=== PATIENT | male | born 1940 | race Caucasian/White ===

== ENCOUNTER 2016-08-25 02:09 | Inpatient (IN) | payer MEDICARE, OTHER ==
[~2016-08-25] VITALS: Ht 182.9 cm; Wt 86.5 kg
[~2016-08-25 02:09] MED LIST: AMIO100T3 OR; CARV3.1240 PO; DOXA1TAB42 PO; GEM600T GT; RAMI10CA OR; SIMV-8 PO; WARF4TAB33 PO
[2016-08-25 02:37] LABS: Hematocrit 44.5 % (41.0-53.0); Hemoglobin 14.3 g/dL (13.5-17.5); Mean Corpuscular Hemoglobin 28.4 pg (28.0-32.0); Mean Corpuscular Hgb Conc. 32.2 g/dL (32.0-36.0); Mean Corpuscular Volume 88.2 fL (80.0-100.0); Mean Platelet Volume 10.6 fL (7.4-10.4); Platelet Count (auto) 163 10^3/uL (140-450); Red Cell Distribution Width 14.3 % (11.6-16.0); SUSPECT VIEW TRANSMISSION
[2016-08-25 02:46] LABS: Metamyelocytes % 0; Myelocytes % 0; Promyelocytes % 0; Reactive Lymphocytes 0
[2016-08-25] MEDS ORDERED: AMIO200T33 PO (02:55)
[2016-08-25] MEDS ORDERED: CARV6.25 PO (02:58)
[2016-08-25] MEDS ORDERED: FURO40TA PO (02:58)
[2016-08-25] MEDS ORDERED: GEMF600T3 PO (03:01)
[2016-08-25] MEDS ORDERED: WARF2.5T39 PO (03:01)
[2016-08-25] MEDS ORDERED: SIMV-8 PO (03:01)
[2016-08-25] MEDS ORDERED: RAMI2.5C33 PO (03:01)
[2016-08-25] MEDS ORDERED: WARF5TAB71 PO (03:01)
[2016-08-25 03:10] LABS: Anisocytosis Slight; Hypersegmented Neutrophils Present; Platelet Estimate Adequate
[2016-08-25 03:11] LABS: Ovalocytes FEW
[2016-08-25 03:13] LABS: Albumin 3.9 g/dL (3.4-5.0); Calcium 8.2 mg/dL (8.5-10.1); Potassium 4.6 mmol/L (3.5-5.1)
[2016-08-25 03:16] LABS: Bilirubin, Total 0.4 mg/dL (0.2-1.0); Total Protein 7.4 g/dL (6.4-8.2)
[2016-08-25 03:35] LABS: Temperature: 21.4 C (20.0-25.0)
[2016-08-25] MEDS ORDERED: cefTRIAXone 1GM/50ML D5W 50 ML IV ONE (04:30)
[2016-08-25] MEDS ORDERED: IPRATROPIUM BROM 0.5 MG/2.5ML INH SOL NEB ONE (04:45)
[2016-08-25] MEDS ORDERED: methylPREDNISolone SOD SUCC 125 MG/2 ML VL IV ONE (04:45)
[2016-08-25] MEDS ORDERED: ALBUTEROL SULF 2.5 MG/0.5ML(0.5%) NEB SOLN NEB ONE (04:45)
[2016-08-25 05:02] LABS: INR 2.89 (0.9-1.15); Prothrombin Time 29.8 sec (9.37-12.3)
[2016-08-25] MEDS ORDERED: ONDANSETRON HCL 4 MG/2 ML VIAL IV PRN (07:00)
[2016-08-25] MEDS ORDERED: ALBUTEROL SULF 2.5 MG/0.5ML(0.5%) NEB SOLN NEB PRN (07:00)
[2016-08-25] MEDS ORDERED: NITROGLYCERIN 0.4 MG SL TAB SL PRN (07:00)
[2016-08-25] MEDS ORDERED: ENOXAPARIN SOD 100 MG/1 ML SYRINGE SC ONE (07:00)
[2016-08-25] MEDS ORDERED: ACETAMINOPHEN 325 MG TAB PO PRN (07:00)
[2016-08-25] MEDS ORDERED: IPRATROPIUM BROM 0.5 MG/2.5ML INH SOL NEB PRN (07:00)
[2016-08-25] MEDS: FAMOTIDINE 20 MG TAB PO SCH (08:43)
[2016-08-25] MEDS: GEMFIBROZIL 600 MG TAB PO SCH (08:43)
[2016-08-25] MEDS: RAMIPRIL 2.5 MG CAP PO SCH (08:44)
[2016-08-25 09:56] VITALS: BP 118/82
[2016-08-25] MEDS ORDERED: AMIODARONE HCL 200 MG TAB PO SCH (10:00)
[2016-08-25] MEDS ORDERED: CARVEDILOL 3.125 MG TAB PO SCH (10:00)
[2016-08-25] MEDS ORDERED: FUROSEMIDE 40 MG TAB PO SCH (10:00)
[2016-08-25] MEDS ORDERED: GEMFIBROZIL 600 MG TAB PO SCH (10:00)
[2016-08-25] MEDS ORDERED: FAMOTIDINE 20 MG TAB PO SCH (10:00)
[2016-08-25 10:03] LABS: Urine Bilirubin Negative (Negative); Urine Blood Negative /uL (Negative); Urine Color Yellow (Yellow); Urine Glucose Normal (Normal); Urine Ketone Negative (Negative); Urine Nitrite Negative (Negative); Urine RBC <1 /hpf (0 - 3); Urine Squamous Epithelial Cell FEW /hpf (<5); Urine Urobilinogen Normal (Negative); Urine pH 5.5 (5.0-8.0)
[2016-08-25] MEDS: AZITHROMYCIN 500MG/D5W 250ML 250 ML IV SCH (10:30)
[2016-08-25] MEDS ORDERED: DEXTROSE (50%) 50ML SYRG IV PRN (11:30)
[2016-08-25] MEDS ORDERED: ACCU-CHEK COMFORT CURVE STRIP VI SCH (11:30)
[2016-08-25] MEDS: InsuLIN REG 1unit/0.01ml Soln (100units/ml) SC SCH ×3 (12:00→20:47)
[2016-08-25] MEDS: ACCU-CHEK COMFORT CURVE STRIP VI SCH ×3 (12:00→23:10)
[2016-08-25] MEDS ORDERED: FUROSEMIDE 100 MG/10ML VIAL IV ONE ×2 (13:30)
[2016-08-25 17:00] VITALS: BP 110/72
[2016-08-25] MEDS ORDERED: WARFARIN SODIUM 2 MG TAB PO ONE (17:00)
[2016-08-25 20:00] VITALS: BP 101/62
[2016-08-25] MEDS ORDERED: PATIENTS OWN MEDICATION (simvastatin 20 MG) PO SCH ×2 (22:00)
[2016-08-25] MEDS: methylPREDNISolone SOD SUCC 40 MG/ML VL IV SCH (23:23)
[2016-08-25] MEDS: AMIODARONE HCL 200 MG TAB PO SCH (23:24)
[2016-08-25] MEDS: METOPROLOL TARTRATE 25 MG TAB PO SCH (23:25)
[2016-08-25] MEDS: PRAVASTATIN SODIUM 20 MG TAB PO SCH (23:26)
[2016-08-25] MEDS: MEXILETINE HYDROCHLORIDE 150 MG CAP PO SCH (23:48)
[2016-08-26] MEDS: InsuLIN REG 1unit/0.01ml Soln (100units/ml) SC SCH ×6 (02:43→20:29)
[2016-08-26] MEDS: ACCU-CHEK COMFORT CURVE STRIP VI SCH ×6 (02:58→20:30)
[2016-08-26 03:26] VITALS: BP 101/62
[2016-08-26 05:13] VITALS: BP 104/60
[2016-08-26] MEDS: cefTRIAXone 1GM/50ML D5W 50 ML IV SCH (06:00)
[2016-08-26 06:04] LABS: Hematocrit 37.7 % (41.0-53.0); Hemoglobin 12.4 g/dL (13.5-17.5); Mean Corpuscular Volume 87.8 fL (80.0-100.0); Mean Platelet Volume 11.1 fL (7.4-10.4); Platelet Count (auto) 140 10^3/uL (140-450); Red Cell Distribution Width 14.1 % (11.6-16.0); SUSPECT VIEW TRANSMISSION
[2016-08-26 06:15] LABS: Metamyelocytes % 0; Myelocytes % 0; Partial Thromboplastin Time 39.2 sec (22.64-33.71); Promyelocytes % 0; Reactive Lymphocytes 0
[2016-08-26 06:24] LABS: INR 3.24 (0.9-1.15); Prothrombin Time 33.4 sec (9.37-12.3)
[2016-08-26 06:34] LABS: Albumin 3.2 g/dL (3.4-5.0); BUN/Creatinine Ratio 24.1; Bilirubin, Total 0.4 mg/dL (0.2-1.0); Calcium 8.4 mg/dL (8.5-10.1); Magnesium 2.5 mg/dL (1.6-2.6); Potassium 4.3 mmol/L (3.5-5.1); Total Protein 6.4 g/dL (6.4-8.2)
[2016-08-26 07:04] LABS: Platelet Estimate Adequate
[2016-08-26 07:06] LABS: Ovalocytes MODERATE; Tear Drop Cells FEW
[2016-08-26 09:00] VITALS: BP 104/68
[2016-08-26] MEDS: FUROSEMIDE 40 MG/4 ML VIAL IV SCH (09:45)
[2016-08-26] MEDS: methylPREDNISolone SOD SUCC 40 MG/ML VL IV SCH ×2 (09:46→21:46)
[2016-08-26] MEDS: RAMIPRIL 2.5 MG CAP PO SCH (09:46)
[2016-08-26] MEDS: METOPROLOL TARTRATE 25 MG TAB PO SCH ×2 (09:47→22:00)
[2016-08-26] MEDS: GEMFIBROZIL 600 MG TAB PO SCH (09:47)
[2016-08-26] MEDS: FAMOTIDINE 20 MG TAB PO SCH (09:47)
[2016-08-26] MEDS: AMIODARONE HCL 200 MG TAB PO SCH ×2 (09:47→21:47)
[2016-08-26] MEDS ORDERED: ENOXAPARIN SOD 40 MG/0.4 ML SYRINGE SC SCH (10:00)
[2016-08-26] MEDS: AZITHROMYCIN 500MG/D5W 250ML 250 ML IV SCH (10:00)
[2016-08-26 13:00] VITALS: BP 108/60
[2016-08-26] MEDS: MEXILETINE HYDROCHLORIDE 150 MG CAP PO SCH ×2 (13:01→22:00)
[2016-08-26 17:00] VITALS: BP 107/65
[2016-08-26] MEDS: PRAVASTATIN SODIUM 20 MG TAB PO SCH (21:46)
[2016-08-26 22:00] VITALS: BP 91/72
[2016-08-27] MEDS: InsuLIN REG 1unit/0.01ml Soln (100units/ml) SC SCH ×4 (00:43→12:08)
[2016-08-27] MEDS: ACCU-CHEK COMFORT CURVE STRIP VI SCH ×4 (00:43→12:08)
[2016-08-27] MEDS: cefTRIAXone 1GM/50ML D5W 50 ML IV SCH (04:55)
[2016-08-27 05:00] VITALS: BP 99/58
[2016-08-27 06:52] LABS: Hematocrit 39.3 % (41.0-53.0); Hemoglobin 12.9 g/dL (13.5-17.5); Mean Corpuscular Hgb Conc. 32.8 g/dL (32.0-36.0); Mean Corpuscular Volume 88.6 fL (80.0-100.0); Platelet Count (auto) 140 10^3/uL (140-450); Red Cell Distribution Width 14.2 % (11.6-16.0); SUSPECT VIEW TRANSMISSION; White Blood Cell 19.7 10^3/uL (4.4-10.8)
[2016-08-27 07:01] LABS: Partial Thromboplastin Time 36.4 sec (22.64-33.71)
[2016-08-27 07:10] LABS: BUN/Creatinine Ratio 29.6; Calcium 8.4 mg/dL (8.5-10.1); Magnesium 2.7 mg/dL (1.6-2.6); Potassium 4.3 mmol/L (3.5-5.1)
[2016-08-27 07:27] LABS: Metamyelocytes % 0; Myelocytes % 0; Promyelocytes % 0; Reactive Lymphocytes 0
[2016-08-27 08:16] LABS: INR 3.26 (0.9-1.15); Prothrombin Time 33.6 sec (9.37-12.3)
[2016-08-27 09:00] VITALS: BP 102/68
[2016-08-27] MEDS: METOPROLOL TARTRATE 25 MG TAB PO SCH (10:00)
[2016-08-27] MEDS: FUROSEMIDE 40 MG/4 ML VIAL IV SCH (10:00)
[2016-08-27] MEDS: AZITHROMYCIN 500MG/D5W 250ML 250 ML IV SCH (10:15)
[2016-08-27] MEDS: FAMOTIDINE 20 MG TAB PO SCH (10:18)
[2016-08-27] MEDS: methylPREDNISolone SOD SUCC 40 MG/ML VL IV SCH (10:18)
[2016-08-27] MEDS: RAMIPRIL 2.5 MG CAP PO SCH (10:24)
[2016-08-27] MEDS: AMIODARONE HCL 200 MG TAB PO SCH (10:25)
[2016-08-27] MEDS: GEMFIBROZIL 600 MG TAB PO SCH (10:25)
[2016-08-27 11:28] LABS: Giant Platelets Few; Ovalocytes MODERATE; Platelet Estimate Adequate
[2016-08-27] MEDS: MEXILETINE HYDROCHLORIDE 150 MG CAP PO SCH (12:22)
[2016-08-27 13:00] VITALS: BP 111/76
[2016-08-27 14:52] VITALS: BP 115/78
[2016-08-27 16:34] VITALS: BP 99/62
== END 2016-08-27 15:33 | disposition home or self-care (01) | DRG 291 ==
LOC: EDBD 02:09 → ER 02:11 → TELE 02:12 → TELE-E-ADS 10:03 → TELE-WESTW 16:43
PROVIDERS: ADMIT Internal Medicine; ATTEND Internal Medicine
DX: I13.0 Hypertensive heart and chronic kidney disease with heart failure and stage 1 through stage 4 chronic kidney disease, or unspecified chronic kidney disease (principal); I50.43 Acute on chronic combined systolic (congestive) and diastolic (congestive) heart failure; J44.1 Chronic obstructive pulmonary disease with (acute) exacerbation; I47.2 Ventricular tachycardia; E87.0 Hyperosmolality and hypernatremia; I25.10 Atherosclerotic heart disease of native coronary artery without angina pectoris; N18.3 Chronic kidney disease, stage 3 (moderate); I25.5 Ischemic cardiomyopathy; E78.5 Hyperlipidemia, unspecified; I48.2 Chronic atrial fibrillation; Z86.73 Personal history of transient ischemic attack (TIA), and cerebral infarction without residual deficits; I25.2 Old myocardial infarction; Z95.1 Presence of aortocoronary bypass graft; Z90.49 Acquired absence of other specified parts of digestive tract; Z87.891 Personal history of nicotine dependence; Z99.81 Dependence on supplemental oxygen; E87.8 Other disorders of electrolyte and fluid balance, not elsewhere classified; Z79.01 Long term (current) use of anticoagulants; Z95.810 Presence of automatic (implantable) cardiac defibrillator; Z88.6 Allergy status to analgesic agent
CPT/HCPCS: 36415; 36600; 71010; 80048; 80053; 80061; 81001; 82805; 82962; 83036; 83735; 83880; 84484; 85007; 85027; 85379; 85610; 85730; 87040; 87400; 87807; 93005; 93306; 94640; 94660; 96365; 96372; 96375; J0696; J1815

== ENCOUNTER 2017-11-05 19:58 | Inpatient (IN) | payer MEDICARE, OTHER ==
[~2017-11-05] VITALS: Ht 180.3 cm; Wt 85.6 kg
[~2017-11-05 19:58] MED LIST changes: +ALBU18 IN; -AMIO100T3 OR; +AMIO200T33 PO; +CAR3125T PO; -CARV3.1240 PO; +DIGO0.2570 PO; +FURO40TA PO; -GEM600T GT; +GEMF600T3 PO; +INSU100I2; +MEX150C PO; +PRAV20TA3 PO; -RAMI10CA OR; +RAMI2.5C33 PO; +SACU1TAB PO; +WARF2.5T39 PO; -WARF4TAB33 PO
[2017-11-05 20:50] LABS: Basophils # (auto) 0.1 uL; Basophils % (auto) 0.5 % (0.0-2.0); Eosinophils # (auto) 0.1 uL; Eosinophils % (auto) 1.3 % (0.0-7.0); Hematocrit 42.6 % (41.0-53.0); Lymphocytes # (auto) 0.8 uL; Lymphocytes % (auto) 7.7 % (10.0-50.0); Mean Corpuscular Hgb Conc. 32.8 g/dL (32.0-36.0); Mean Corpuscular Volume 94.4 fL (80.0-100.0); Monocytes # (auto) 0.6 uL; Monocytes % (auto) 5.8 % (0.0-12.0); Neutrophils # (auto) 9.3 uL; Neutrophils % (auto) 84.7 % (37.0-80.0); Platelet Count (auto) 165 10^3/uL (140-450); Red Blood Cells 4.51 10^6/uL (4.5-5.90); Red Cell Distribution Width 14.7 % (11.8-14.3)
[2017-11-05 20:59] LABS: Partial Thromboplastin Time 39.9 sec (22.64-33.71); Prothrombin Time 49.1 sec (9.37-12.3)
[2017-11-05 21:05] LABS: INR 4.44 (0.9-1.15)
[2017-11-05 21:09] LABS: Alanine Aminotransferase 17 U/L (16-61); Albumin 3.9 g/dL (3.4-5.0); Alkaline Phosphatase 67 U/L (45-117); Anion Gap 10 (5-15); Aspartate Aminotransferase 16 U/L (15-37); BUN/Creatinine Ratio 17.4; Bilirubin, Total 0.6 mg/dL (0.2-1.0); Blood Urea Nitrogen 34 mg/dL (7-18); Calcium 8.4 mg/dL (8.5-10.1); Carbon Dioxide 25 mmol/L (21-32); Chloride 106 mmol/L (98-107); GFR African American 43 mL/min; GFR Non-African American 36 mL/min; Glucose 195 mg/dL (74-106); Potassium 4.5 mmol/L (3.5-5.1); Sodium 141 mmol/L (136-145); Total Protein 7.6 g/dL (6.4-8.2)
[2017-11-05] MEDS ORDERED: HYDROcodone-ACET 5/325MG TAB PO PRN (23:00)
[2017-11-05] MEDS ORDERED: ONDANSETRON HCL 4 MG/2 ML VIAL IV PRN (23:00)
[2017-11-05] MEDS ORDERED: ACETAMINOPHEN 500 MG TAB PO PRN (23:00)
[2017-11-05] MEDS ORDERED: FUROSEMIDE 40 MG/4 ML VIAL IV ONE (23:00)
[2017-11-05] MEDS ORDERED: DEXTROSE (50%) 50ML SYRG IV PRN (23:00)
[2017-11-06] VITALS (10 sets, daily range): BP systolic 92–116; BP diastolic 61–84
[2017-11-06] MEDS: ALBUTEROL SULF 2.5 MG/0.5ML(0.5%) NEB SOLN NEB PRN ×5 (02:53→20:21)
[2017-11-06] MEDS: InsuLIN REG 1unit/0.01ml Soln (100units/ml) SC SCH ×4 (07:00→21:50)
[2017-11-06] MEDS: ACCU-CHEK COMFORT CURVE STRIP VI SCH ×4 (07:06→21:49)
[2017-11-06 07:36] LABS: Basophils # (auto) 0 uL; Basophils % (auto) 0.3 % (0.0-2.0); Eosinophils # (auto) 0.1 uL; Eosinophils % (auto) 0.8 % (0.0-7.0); Hematocrit 41.6 % (41.0-53.0); Hemoglobin 13.6 g/dL (13.5-17.5); Lymphocytes # (auto) 0.8 uL; Lymphocytes % (auto) 6.2 % (10.0-50.0); Mean Corpuscular Hemoglobin 30.9 pg (28.0-32.0); Mean Corpuscular Hgb Conc. 32.8 g/dL (32.0-36.0); Mean Corpuscular Volume 94.3 fL (80.0-100.0); Monocytes # (auto) 0.8 uL; Monocytes % (auto) 6.4 % (0.0-12.0); Neutrophils # (auto) 10.7 uL; Neutrophils % (auto) 86.3 % (37.0-80.0); Nucleated Red Blood Cells % 0.1 %; Platelet Count (auto) 142 10^3/uL (140-450); Red Blood Cells 4.41 10^6/uL (4.5-5.90); Red Cell Distribution Width 14.3 % (11.8-14.3); White Blood Cell 12.4 10^3/uL (4.4-10.8)
[2017-11-06 07:54] LABS: Calcium 8.7 mg/dL (8.5-10.1); Potassium 3.9 mmol/L (3.5-5.1)
[2017-11-06] MEDS: GEMFIBROZIL 600 MG TAB PO SCH ×2 (10:00→21:49)
[2017-11-06] MEDS: CARVEDILOL 3.125 MG TAB PO SCH ×3 (10:00→21:50)
[2017-11-06] MEDS: FUROSEMIDE 40 MG/4 ML VIAL IV SCH (10:00)
[2017-11-06 11:24] LABS: Urine Bacteria NONE SEEN /hpf (None Seen); Urine Blood Negative /uL (Negative); Urine Specific Gravity 1.011 (1.001-1.035); Urine WBC <1 /hpf (0 - 3)
[2017-11-06] MEDS: DOBUTamine 1000MCG/ML 250 ML IV SCH (13:10)
[2017-11-07] VITALS (8 sets, daily range): BP systolic 94–109; BP diastolic 61–78
[2017-11-07] MEDS: DOBUTamine 1000MCG/ML 250 ML IV SCH ×2 (04:35→21:14)
[2017-11-07] MEDS: ALBUTEROL SULF 2.5 MG/0.5ML(0.5%) NEB SOLN NEB PRN ×3 (05:44→18:40)
[2017-11-07] MEDS: ACCU-CHEK COMFORT CURVE STRIP VI SCH ×4 (06:50→22:03)
[2017-11-07] MEDS: InsuLIN REG 1unit/0.01ml Soln (100units/ml) SC SCH ×4 (06:51→22:00)
[2017-11-07 07:05] LABS: Basophils # (auto) 0 uL; Basophils % (auto) 0.5 % (0.0-2.0); Eosinophils # (auto) 0.3 uL; Eosinophils % (auto) 3.3 % (0.0-7.0); Hematocrit 37.1 % (41.0-53.0); Hemoglobin 12.7 g/dL (13.5-17.5); Lymphocytes % (auto) 12.6 % (10.0-50.0); Mean Corpuscular Hemoglobin 31.8 pg (28.0-32.0); Mean Corpuscular Hgb Conc. 34.1 g/dL (32.0-36.0); Mean Corpuscular Volume 93.3 fL (80.0-100.0); Monocytes # (auto) 0.8 uL; Monocytes % (auto) 9.8 % (0.0-12.0); Neutrophils % (auto) 73.8 % (37.0-80.0); Nucleated Red Blood Cells % 0.1 %; Platelet Count (auto) 114 10^3/uL (140-450); Red Blood Cells 3.98 10^6/uL (4.5-5.90); Red Cell Distribution Width 14.5 % (11.8-14.3); White Blood Cell 8.2 10^3/uL (4.4-10.8)
[2017-11-07 07:07] LABS: BUN/Creatinine Ratio 19.2; Calcium 8.5 mg/dL (8.5-10.1); Potassium 3.8 mmol/L (3.5-5.1)
[2017-11-07 07:20] LABS: INR 2.13 (0.9-1.15); Partial Thromboplastin Time 39.7 sec (22.64-33.71); Prothrombin Time 23.4 sec (9.37-12.3)
[2017-11-07] MEDS: GEMFIBROZIL 600 MG TAB PO SCH ×2 (09:15→22:03)
[2017-11-07] MEDS: CARVEDILOL 3.125 MG TAB PO SCH ×2 (09:15→22:03)
[2017-11-07] MEDS: FUROSEMIDE 40 MG/4 ML VIAL IV SCH ×2 (09:15→13:41)
[2017-11-07] MEDS ORDERED: POTASSIUM CHL 20 Meq TABLET PO ONE (13:30)
[2017-11-07] MEDS ORDERED: PANTOPRAZOLE 40 MG TAB PO ONE (15:00)
[2017-11-07] MEDS ORDERED: LORATADINE 10 MG TAB PO ONE (15:00)
[2017-11-07] MEDS ORDERED: WARFARIN SODIUM 5 MG TAB PO ONE (17:00)
[2017-11-08 05:00] VITALS: BP 102/70
[2017-11-08 06:32] LABS: Basophils # (auto) 0 uL; Basophils % (auto) 0.5 % (0.0-2.0); Eosinophils # (auto) 0.4 uL; Eosinophils % (auto) 4.8 % (0.0-7.0); Hematocrit 35.5 % (41.0-53.0); Hemoglobin 11.9 g/dL (13.5-17.5); Lymphocytes # (auto) 0.8 uL; Lymphocytes % (auto) 9.3 % (10.0-50.0); Mean Corpuscular Hemoglobin 31.3 pg (28.0-32.0); Mean Corpuscular Hgb Conc. 33.6 g/dL (32.0-36.0); Monocytes # (auto) 0.8 uL; Monocytes % (auto) 9.7 % (0.0-12.0); Neutrophils # (auto) 6.2 uL; Neutrophils % (auto) 75.7 % (37.0-80.0); Platelet Count (auto) 114 10^3/uL (140-450); Red Blood Cells 3.82 10^6/uL (4.5-5.90); Red Cell Distribution Width 14.1 % (11.8-14.3); White Blood Cell 8.2 10^3/uL (4.4-10.8)
[2017-11-08 06:38] LABS: INR 1.83 (0.9-1.15); Prothrombin Time 20.1 sec (9.37-12.3)
[2017-11-08] MEDS: ACCU-CHEK COMFORT CURVE STRIP VI SCH ×2 (06:39→11:50)
[2017-11-08] MEDS: InsuLIN REG 1unit/0.01ml Soln (100units/ml) SC SCH ×2 (06:40→12:04)
[2017-11-08 06:43] LABS: BUN/Creatinine Ratio 20.6; Calcium 8.1 mg/dL (8.5-10.1); Potassium 3.7 mmol/L (3.5-5.1)
[2017-11-08 09:09] VITALS: BP 99/71
[2017-11-08] MEDS ORDERED: LORATADINE 10 MG TAB PO SCH (10:00)
[2017-11-08] MEDS: CARVEDILOL 3.125 MG TAB PO SCH (10:00)
[2017-11-08] MEDS ORDERED: PANTOPRAZOLE 40 MG TAB PO SCH (10:00)
[2017-11-08] MEDS: GEMFIBROZIL 600 MG TAB PO SCH (10:36)
[2017-11-08] MEDS: FUROSEMIDE 40 MG/4 ML VIAL IV SCH (11:05)
[2017-11-08] MEDS: DOBUTamine 1000MCG/ML 250 ML IV SCH (12:00)
[2017-11-08 13:55] VITALS: BP 99/71
[2017-11-08] MEDS ORDERED: WARFARIN SODIUM 2.5 MG TAB PO ONE (17:00)
[2017-11-25] MEDS ORDERED: ALB5IS NEB (13:12)
[2017-11-25] MEDS ORDERED: ALBUAER3 IN (13:12)
[2017-11-25] MEDS ORDERED: DIGO0.1262 PO (13:12)
[2017-11-25] MEDS ORDERED: CARV3.1240 PO (13:12)
[2017-11-25] MEDS ORDERED: HYDR-4683 PO (13:12)
[2017-11-25] MEDS ORDERED: INSLISPI SC (13:12)
[2017-11-25] MEDS ORDERED: GLIP-115 PO (13:12)
[2017-11-25] MEDS ORDERED: WARF5TAB71 PO ×2 (13:12)
[2017-11-25] MEDS ORDERED: FURO20TA PO (13:12)
[2017-11-25] MEDS ORDERED: WARF2.5T39 PO (13:12)
== END 2017-11-08 15:00 | disposition home or self-care (01) | DRG 291 ==
LOC: EDBD 19:58 → ER 20:04 → TELE 20:05 → TELE-CENTR 11-06 02:21
PROVIDERS: ADMIT Nurse Practitioner Family; ATTEND Internal Medicine
DX: I13.0 Hypertensive heart and chronic kidney disease with heart failure and stage 1 through stage 4 chronic kidney disease, or unspecified chronic kidney disease (principal); J96.20 Acute and chronic respiratory failure, unspecified whether with hypoxia or hypercapnia; I47.2 Ventricular tachycardia; N17.9 Acute kidney failure, unspecified; N18.4 Chronic kidney disease, stage 4 (severe); I50.43 Acute on chronic combined systolic (congestive) and diastolic (congestive) heart failure; I25.5 Ischemic cardiomyopathy; J44.9 Chronic obstructive pulmonary disease, unspecified; T45.515A Adverse effect of anticoagulants, initial encounter; I25.10 Atherosclerotic heart disease of native coronary artery without angina pectoris; E11.22 Type 2 diabetes mellitus with diabetic chronic kidney disease; E78.5 Hyperlipidemia, unspecified; I25.2 Old myocardial infarction; Z79.899 Other long term (current) drug therapy; Z86.73 Personal history of transient ischemic attack (TIA), and cerebral infarction without residual deficits; Z87.891 Personal history of nicotine dependence; Z95.1 Presence of aortocoronary bypass graft; Z95.810 Presence of automatic (implantable) cardiac defibrillator; Z79.4 Long term (current) use of insulin; Z79.01 Long term (current) use of anticoagulants; Z90.49 Acquired absence of other specified parts of digestive tract
CPT/HCPCS: 36415; 71045; 80048; 80053; 81001; 82270; 82962; 83880; 84484; 85025; 85610; 85730; 93005; 93306; 94640; 96374; 99291; J1815

== ENCOUNTER 2018-03-21 13:54 | Inpatient (IN) | payer MEDICARE, OTHER ==
[~2018-03-21] VITALS: Ht 182.9 cm; Wt 82.8 kg
[~2018-03-21 13:54] MED LIST changes: +ALB5IS NEB; -ALBU18 IN; +ALBUAER3 IN; -CAR3125T PO; +CARV3.1240 PO; +DIGO0.1262 PO; -DIGO0.2570 PO; +FURO20TA PO; -FURO40TA PO; +GLIP-115 PO; +HYDR-4683 PO; +INSLISPI SC; -INSU100I2; +LEVO500T21 PO; +METO5TAB56 PO; +POTA1TAB61 PO; -PRAV20TA3 PO; -RAMI2.5C33 PO; +WARF5TAB71 PO
[2018-03-21 14:32] LABS: Basophils # (auto) 0 uL; Basophils % (auto) 0.4 % (0.0-2.0); Eosinophils # (auto) 0.2 uL; Eosinophils % (auto) 1.6 % (0.0-7.0); Hematocrit 44.4 % (41.0-53.0); Lymphocytes # (auto) 0.6 uL; Lymphocytes % (auto) 5.3 % (10.0-50.0); Mean Corpuscular Hemoglobin 29.9 pg (28.0-32.0); Mean Corpuscular Hgb Conc. 33.8 g/dL (32.0-36.0); Mean Corpuscular Volume 88.3 fL (80.0-100.0); Monocytes # (auto) 1.1 uL; Monocytes % (auto) 8.8 % (0.0-12.0); Neutrophils # (auto) 10.1 uL; Neutrophils % (auto) 83.9 % (37.0-80.0); Nucleated Red Blood Cells % 0.2 %; Platelet Count (auto) 214 10^3/uL (140-450); Red Blood Cells 5.02 10^6/uL (4.5-5.90); Red Cell Distribution Width 14.7 % (11.8-14.3); White Blood Cell 12.1 10^3/uL (4.4-10.8)
[2018-03-21 14:59] LABS: Albumin 3.7 g/dL (3.4-5.0); BUN/Creatinine Ratio 18.8; Bilirubin, Total 0.8 mg/dL (0.2-1.0); Calcium 8.4 mg/dL (8.5-10.1); Magnesium 3.7 mg/dL (1.6-2.6); Potassium 4.1 mmol/L (3.5-5.1); Total Protein 8.3 g/dL (6.4-8.2)
[2018-03-21] MEDS ORDERED: IOHEXOL 350 MG/ML 100ML IJ ONE (15:00)
[2018-03-21] MEDS ORDERED: IPRATROPIUM BROM 0.5 MG/2.5ML INH SOL NEB ONE (20:15)
[2018-03-21] MEDS ORDERED: ALBUTEROL SULF 2.5 MG/0.5ML(0.5%) NEB SOLN NEB ONE (20:15)
[2018-03-21 21:09] LABS: Urine Bacteria NONE SEEN /hpf (None Seen); Urine Blood Negative /uL (Negative); Urine Hyaline Cast FEW /lpf (0 - 2); Urine Mucus FEW (None Seen); Urine Specific Gravity 1.014 (1.001-1.035); Urine WBC 3 /hpf (0 - 3)
[2018-03-21] MEDS ORDERED: SODIUM CHLORIDE 0.9% 500 ML IV ONE (21:15)
[2018-03-21] MEDS ORDERED: HYDROcodone-ACET 5/325MG TAB PO PRN (22:00)
[2018-03-21] MEDS ORDERED: DOXYCYCLINE 100MG/250ML 250 ML IV ONE (22:00)
[2018-03-21 22:38] VITALS: BP 122/55
[2018-03-21] MEDS: CARVEDILOL 3.125 MG TAB PO SCH (22:48)
[2018-03-21 23:29] LABS: INR 1.79 (0.9-1.15); Partial Thromboplastin Time 30.7 sec (23.78-33.04); Prothrombin Time 18.5 sec (9.27-12.13)
[2018-03-21 23:50] VITALS: BP 87/56
[2018-03-22] MEDS: IPRATROPIUM BROM 0.5 MG/2.5ML INH SOL NEB SCH ×4 (00:23→18:25)
[2018-03-22] MEDS: ALBUTEROL SULF 2.5 MG/0.5ML(0.5%) NEB SOLN NEB SCH ×4 (00:24→18:25)
[2018-03-22 01:30] VITALS: BP 117/66
[2018-03-22 05:00] VITALS: BP 101/59
[2018-03-22 06:57] LABS: Basophils # (auto) 0 uL; Basophils % (auto) 0.4 % (0.0-2.0); Eosinophils # (auto) 0.3 uL; Eosinophils % (auto) 2.6 % (0.0-7.0); Hematocrit 42.8 % (41.0-53.0); Hemoglobin 14.6 g/dL (13.5-17.5); Lymphocytes # (auto) 0.7 uL; Mean Corpuscular Hemoglobin 30.4 pg (28.0-32.0); Mean Corpuscular Hgb Conc. 34.2 g/dL (32.0-36.0); Monocytes # (auto) 1.1 uL; Monocytes % (auto) 10.8 % (0.0-12.0); Neutrophils # (auto) 8.4 uL; Neutrophils % (auto) 79.2 % (37.0-80.0); Platelet Count (auto) 159 10^3/uL (140-450); Red Blood Cells 4.81 10^6/uL (4.5-5.90); White Blood Cell 10.6 10^3/uL (4.4-10.8)
[2018-03-22 07:22] LABS: BUN/Creatinine Ratio 21.4; Calcium 8.1 mg/dL (8.5-10.1); Potassium 3.8 mmol/L (3.5-5.1)
[2018-03-22 07:43] VITALS: BP 111/61
[2018-03-22 07:43] LABS: INR 1.77 (0.9-1.15); Prothrombin Time 18.3 sec (9.27-12.13)
[2018-03-22] MEDS: AMIODARONE HCL 200 MG TAB PO SCH (08:17)
[2018-03-22] MEDS: CARVEDILOL 3.125 MG TAB PO SCH (08:24)
[2018-03-22] MEDS: SODIUM CHLORIDE 0.9% 1,000 ML IV SCH ×2 (10:00→20:00)
[2018-03-22] MEDS: predniSONE 20 MG TAB PO SCH (10:00)
[2018-03-22 12:16] VITALS: BP 103/65
[2018-03-22 16:40] VITALS: BP 113/69
[2018-03-22] MEDS ORDERED: WARFARIN SODIUM 1 MG TAB PO ONE (17:00)
[2018-03-22] MEDS ORDERED: [UNRECOGNIZED DRUG - OTHER] PO ONE (17:00)
[2018-03-22 22:00] VITALS: BP_SYST 109; BP_SYST 136; BP_DIAS 68; BP_DIAS 70
[2018-03-23] MEDS: CARVEDILOL 3.125 MG TAB PO SCH ×3 (00:20→22:12)
[2018-03-23] MEDS: ALBUTEROL SULF 2.5 MG/0.5ML(0.5%) NEB SOLN NEB SCH ×4 (00:22→19:47)
[2018-03-23] MEDS: IPRATROPIUM BROM 0.5 MG/2.5ML INH SOL NEB SCH ×4 (00:22→19:47)
[2018-03-23] MEDS ORDERED: FUROSEMIDE INJECTION 10 ML ONE (00:30)
[2018-03-23] MEDS: DOPamine 3200MCG/ML 250 ML IV SCH ×2 (01:50→18:00)
[2018-03-23] MEDS: FUROSEMIDE INJECTION 100 MG in D5W 5% 90 ML IV SCH ×2 (01:51→17:38)
[2018-03-23] MEDS: ONDANSETRON HCL 4 MG/2 ML VIAL IV PRN (03:36)
[2018-03-23 05:00] VITALS: BP 103/64
[2018-03-23] MEDS ORDERED: FURO40TA4 PO (05:14)
[2018-03-23] MEDS ORDERED: DIGO1TAB35 PO (05:14)
[2018-03-23] MEDS ORDERED: SACU1TAB PO (05:14)
[2018-03-23] MEDS: SODIUM CHLORIDE 0.9% 1,000 ML IV SCH ×2 (06:00→16:00)
[2018-03-23] MEDS: ACETAMINOPHEN 500 MG TAB PO PRN ×2 (06:39→13:53)
[2018-03-23] MEDS ORDERED: DEXTROSE (50%) 50ML SYRG IV PRN (06:45)
[2018-03-23 07:33] VITALS: BP 111/61
[2018-03-23 07:47] LABS: Basophils # (auto) 0.1 uL; Basophils % (auto) 0.4 % (0.0-2.0); Eosinophils # (auto) 0.3 uL; Hematocrit 43.6 % (41.0-53.0); Lymphocytes # (auto) 0.8 uL; Lymphocytes % (auto) 5.2 % (10.0-50.0); Mean Corpuscular Hemoglobin 30.3 pg (28.0-32.0); Mean Corpuscular Hgb Conc. 34.4 g/dL (32.0-36.0); Mean Corpuscular Volume 88.2 fL (80.0-100.0); Monocytes # (auto) 1.1 uL; Monocytes % (auto) 7.6 % (0.0-12.0); Neutrophils # (auto) 12.4 uL; Neutrophils % (auto) 84.8 % (37.0-80.0); Platelet Count (auto) 170 10^3/uL (140-450); Red Blood Cells 4.95 10^6/uL (4.5-5.90); Red Cell Distribution Width 14.7 % (11.8-14.3); White Blood Cell 14.6 10^3/uL (4.4-10.8)
[2018-03-23 07:51] LABS: BUN/Creatinine Ratio 25.2; Calcium 8.6 mg/dL (8.5-10.1); Potassium 4.3 mmol/L (3.5-5.1)
[2018-03-23 07:58] LABS: INR 1.44 (0.9-1.15); Partial Thromboplastin Time 29.9 sec (23.78-33.04); Prothrombin Time 15.1 sec (9.27-12.13)
[2018-03-23] MEDS: predniSONE 20 MG TAB PO SCH (10:30)
[2018-03-23] MEDS: AMIODARONE HCL 200 MG TAB PO SCH (10:30)
[2018-03-23 10:35] LABS: Calcium 8.7 mg/dL (8.5-10.1); Magnesium 2.9 mg/dL (1.6-2.6); Potassium 4.1 mmol/L (3.5-5.1)
[2018-03-23 11:57] VITALS: BP 95/59
[2018-03-23] MEDS: ACCU-CHEK COMFORT CURVE STRIP VI SCH ×2 (12:29→18:00)
[2018-03-23] MEDS: InsuLIN REG 1unit/0.01ml Soln (100units/ml) SC SCH ×3 (12:51→23:59)
[2018-03-23 16:21] VITALS: BP 100/65
[2018-03-23] MEDS: WARFARIN SODIUM 5 MG TAB PO SCH (17:37)
[2018-03-23 21:58] VITALS: BP 94/64
[2018-03-23 22:41] LABS: BUN/Creatinine Ratio 27.5; Calcium 8.6 mg/dL (8.5-10.1); Magnesium 2.7 mg/dL (1.6-2.6); Potassium 4.6 mmol/L (3.5-5.1)
[2018-03-24] VITALS (7 sets, daily range): BP systolic 86–113; BP diastolic 49–70
[2018-03-24] MEDS: ALBUTEROL SULF 2.5 MG/0.5ML(0.5%) NEB SOLN NEB SCH ×4 (01:18→18:37)
[2018-03-24] MEDS: IPRATROPIUM BROM 0.5 MG/2.5ML INH SOL NEB SCH ×4 (01:18→18:37)
[2018-03-24] MEDS: SODIUM CHLORIDE 0.9% 1,000 ML IV SCH (02:00)
[2018-03-24] MEDS: ACCU-CHEK COMFORT CURVE STRIP VI SCH ×4 (06:15→17:46)
[2018-03-24] MEDS: InsuLIN REG 1unit/0.01ml Soln (100units/ml) SC SCH ×3 (06:15→17:46)
[2018-03-24 06:58] LABS: INR 1.31 (0.9-1.15); Prothrombin Time 13.8 sec (9.27-12.13)
[2018-03-24] MEDS: ACETAMINOPHEN 500 MG TAB PO PRN (06:59)
[2018-03-24 09:16] LABS: Basophils # (auto) 0 uL; Eosinophils # (auto) 0 uL; Hematocrit 45.6 % (41.0-53.0); Hemoglobin 15.7 g/dL (13.5-17.5); Lymphocytes # (auto) 0.4 uL; Lymphocytes % (auto) 2.2 % (10.0-50.0); Mean Corpuscular Hemoglobin 30.4 pg (28.0-32.0); Mean Corpuscular Hgb Conc. 34.5 g/dL (32.0-36.0); Monocytes # (auto) 0.6 uL; Monocytes % (auto) 3.1 % (0.0-12.0); Neutrophils # (auto) 18.7 uL; Neutrophils % (auto) 94.7 % (37.0-80.0); Nucleated Red Blood Cells % 0.1 %; Platelet Count (auto) 184 10^3/uL (140-450); Red Blood Cells 5.18 10^6/uL (4.5-5.90); Red Cell Distribution Width 14.6 % (11.8-14.3); White Blood Cell 19.7 10^3/uL (4.4-10.8)
[2018-03-24 09:17] LABS: BUN/Creatinine Ratio 25.9; Calcium 9.1 mg/dL (8.5-10.1); Potassium 4.2 mmol/L (3.5-5.1)
[2018-03-24] MEDS: CARVEDILOL 3.125 MG TAB PO SCH ×2 (10:17→22:00)
[2018-03-24] MEDS: AMIODARONE HCL 200 MG TAB PO SCH (10:17)
[2018-03-24] MEDS: predniSONE 20 MG TAB PO SCH (10:18)
[2018-03-24 15:11] LABS: Creatinine, Urine 77 mg/dL (30.0-125.0); Sodium Urine 62 mmol/L (40-220)
[2018-03-24] MEDS: PIPERACILLIN-TAZOB 3.375GM 100 ML IV SCH (16:00)
[2018-03-24] MEDS ORDERED: WARFARIN SODIUM 5 MG TAB PO ONE (17:00)
[2018-03-24] MEDS: WARFARIN SODIUM 5 MG TAB PO SCH (17:00)
[2018-03-24] MEDS: ACETAMINOPHEN/CODEINE#3 (300/30mg) TAB PO PRN (17:41)
[2018-03-24] MEDS: DOPamine 3200MCG/ML 250 ML IV SCH (18:10)
[2018-03-24] MEDS: FUROSEMIDE INJECTION 100 MG in D5W 5% 90 ML IV SCH (18:18)
[2018-03-24 22:44] LABS: BUN/Creatinine Ratio 29.5; Calcium 8.9 mg/dL (8.5-10.1); Magnesium 3.1 mg/dL (1.6-2.6); Potassium 4.3 mmol/L (3.5-5.1)
[2018-03-25] MEDS: InsuLIN REG 1unit/0.01ml Soln (100units/ml) SC SCH ×4 (00:01→18:21)
[2018-03-25] MEDS: PIPERACILLIN-TAZOB 3.375GM 100 ML IV SCH ×4 (00:01→17:31)
[2018-03-25] MEDS: IPRATROPIUM BROM 0.5 MG/2.5ML INH SOL NEB SCH ×6 (01:36→18:00)
[2018-03-25] MEDS: ALBUTEROL SULF 2.5 MG/0.5ML(0.5%) NEB SOLN NEB SCH ×6 (01:36→18:00)
[2018-03-25 05:00] VITALS: BP 94/62
[2018-03-25] MEDS: ACCU-CHEK COMFORT CURVE STRIP VI SCH ×4 (05:55→18:21)
[2018-03-25 06:54] LABS: Basophils # (auto) 0 uL; Basophils % (auto) 0.1 % (0.0-2.0); Eosinophils # (auto) 0 uL; Hematocrit 45.1 % (41.0-53.0); Hemoglobin 15.9 g/dL (13.5-17.5); Lymphocytes # (auto) 0.8 uL; Lymphocytes % (auto) 3.4 % (10.0-50.0); Mean Corpuscular Hemoglobin 30.5 pg (28.0-32.0); Mean Corpuscular Hgb Conc. 35.2 g/dL (32.0-36.0); Mean Corpuscular Volume 86.7 fL (80.0-100.0); Monocytes # (auto) 1.2 uL; Monocytes % (auto) 5.1 % (0.0-12.0); Neutrophils # (auto) 22.3 uL; Neutrophils % (auto) 91.4 % (37.0-80.0); Platelet Count (auto) 170 10^3/uL (140-450); Red Cell Distribution Width 14.7 % (11.8-14.3); White Blood Cell 24.4 10^3/uL (4.4-10.8)
[2018-03-25 07:07] LABS: INR 1.26 (0.9-1.15); Prothrombin Time 13.3 sec (9.27-12.13)
[2018-03-25 07:15] LABS: BUN/Creatinine Ratio 28.9; Calcium 9.2 mg/dL (8.5-10.1); Phosphorus 5.4 mg/dL (2.5-4.90); Potassium 4.9 mmol/L (3.5-5.1)
[2018-03-25 08:28] VITALS: BP 125/77
[2018-03-25] MEDS: CARVEDILOL 3.125 MG TAB PO SCH ×2 (10:00→22:31)
[2018-03-25 11:05] LABS: BUN/Creatinine Ratio 29.2; Calcium 8.6 mg/dL (8.5-10.1); Magnesium 2.6 mg/dL (1.6-2.6); Potassium 4.2 mmol/L (3.5-5.1)
[2018-03-25 12:01] VITALS: BP 104/66
[2018-03-25] MEDS ORDERED: LIDOCAINE 1% (LOCAL ANESTH.) PF 5ml SDV ID ONE (13:00)
[2018-03-25] MEDS: predniSONE 20 MG TAB PO SCH (14:06)
[2018-03-25] MEDS: AMIODARONE HCL 200 MG TAB PO SCH (14:07)
[2018-03-25 16:26] VITALS: BP 104/73
[2018-03-25] MEDS ORDERED: WARFARIN SODIUM 2.5 MG TAB PO ONE (17:00)
[2018-03-25] MEDS: DOPamine 3200MCG/ML 250 ML IV SCH (18:50)
[2018-03-25 22:00] VITALS: BP 108/59
[2018-03-25] MEDS: SODIUM CHLOR 0.9% PF (SALINE LOCK) 10ML VIAL/SYR IV SCH (22:31)
[2018-03-25 22:39] LABS: BUN/Creatinine Ratio 31.3; Calcium 8.4 mg/dL (8.5-10.1); Magnesium 2.7 mg/dL (1.6-2.6)
[2018-03-25 22:45] LABS: Potassium 4.6 mmol/L (3.5-5.1)
[2018-03-25] MEDS: ONDANSETRON HCL 4 MG/2 ML VIAL IV PRN (23:40)
[2018-03-25] MEDS: ACETAMINOPHEN/CODEINE#3 (300/30mg) TAB PO PRN (23:41)
[2018-03-26] MEDS: CARVEDILOL 3.125 MG TAB PO SCH ×3 (00:01→22:00)
[2018-03-26] MEDS: PIPERACILLIN-TAZOB 3.375GM 100 ML IV SCH ×2 (00:01→06:37)
[2018-03-26] MEDS: InsuLIN REG 1unit/0.01ml Soln (100units/ml) SC SCH ×5 (00:02→22:38)
[2018-03-26] MEDS: ACCU-CHEK COMFORT CURVE STRIP VI SCH ×5 (00:02→22:37)
[2018-03-26 05:39] VITALS: BP 91/53
[2018-03-26] MEDS: IPRATROPIUM BROM 0.5 MG/2.5ML INH SOL NEB SCH ×5 (06:47→23:40)
[2018-03-26] MEDS: ALBUTEROL SULF 2.5 MG/0.5ML(0.5%) NEB SOLN NEB SCH ×5 (06:47→23:40)
[2018-03-26 07:46] LABS: Basophils # (auto) 0 uL; Basophils % (auto) 0.1 % (0.0-2.0); Eosinophils # (auto) 0 uL; Hematocrit 43.4 % (41.0-53.0); Hemoglobin 15.1 g/dL (13.5-17.5); Lymphocytes # (auto) 0.4 uL; Mean Corpuscular Hemoglobin 30.2 pg (28.0-32.0); Mean Corpuscular Hgb Conc. 34.8 g/dL (32.0-36.0); Mean Corpuscular Volume 86.8 fL (80.0-100.0); Monocytes % (auto) 4.9 % (0.0-12.0); Neutrophils # (auto) 18.2 uL; Platelet Count (auto) 166 10^3/uL (140-450); Red Cell Distribution Width 14.5 % (11.8-14.3); White Blood Cell 19.6 10^3/uL (4.4-10.8)
[2018-03-26 07:58] LABS: INR 1.75 (0.9-1.15); Partial Thromboplastin Time 31.5 sec (23.78-33.04); Prothrombin Time 18.1 sec (9.27-12.13)
[2018-03-26 08:00] VITALS: BP 98/54
[2018-03-26 08:01] LABS: BUN/Creatinine Ratio 31.8; Calcium 8.6 mg/dL (8.5-10.1); Potassium 4.5 mmol/L (3.5-5.1)
[2018-03-26 08:45] VITALS: BP 102/70
[2018-03-26] MEDS ORDERED: DEXTROSE (50%) 50ML SYRG IV PRN (11:30)
[2018-03-26] MEDS: cefTRIAXone 1GM/10ml IVPUSH 10 ML IV SCH (12:00)
[2018-03-26 12:01] LABS: Calcium 8.5 mg/dL (8.5-10.1); Magnesium 2.9 mg/dL (1.6-2.6); Potassium 4.6 mmol/L (3.5-5.1)
[2018-03-26] MEDS: SODIUM CHLOR 0.9% PF (SALINE LOCK) 10ML VIAL/SYR IV SCH ×2 (12:01→22:37)
[2018-03-26] MEDS: predniSONE 20 MG TAB PO SCH (12:01)
[2018-03-26 12:03] LABS: BUN/Creatinine Ratio 34.3
[2018-03-26] MEDS: AMIODARONE HCL 200 MG TAB PO SCH (12:13)
[2018-03-26 12:31] VITALS: BP 95/63
[2018-03-26] MEDS ORDERED: WARFARIN SODIUM 2.5 MG TAB PO ONE (17:00)
[2018-03-26 17:05] VITALS: BP 97/62
[2018-03-26] MEDS: ACETAMINOPHEN/CODEINE#3 (300/30mg) TAB PO PRN (17:49)
[2018-03-26] MEDS: DOPamine 3200MCG/ML 250 ML IV SCH (17:56)
[2018-03-26 22:00] VITALS: BP 57/40
[2018-03-26 22:36] LABS: Calcium 8.3 mg/dL (8.5-10.1); Magnesium 2.9 mg/dL (1.6-2.6); Potassium 4.7 mmol/L (3.5-5.1)
[2018-03-26 22:38] LABS: BUN/Creatinine Ratio 34.7
[2018-03-26] MEDS ORDERED: ALBUMIN 5% 250 ML IV ONE (22:45)
[2018-03-26] MEDS: ONDANSETRON HCL 4 MG/2 ML VIAL IV PRN (23:08)
[2018-03-27] VITALS (7 sets, daily range): BP systolic 57–133; BP diastolic 40–93
[2018-03-27] MEDS: ACCU-CHEK COMFORT CURVE STRIP VI SCH ×4 (06:55→22:03)
[2018-03-27] MEDS: InsuLIN REG 1unit/0.01ml Soln (100units/ml) SC SCH ×4 (06:55→22:00)
[2018-03-27 06:58] LABS: Basophils # (auto) 0 uL; Basophils % (auto) 0.2 % (0.0-2.0); Eosinophils # (auto) 0 uL; Hematocrit 43.2 % (41.0-53.0); Hemoglobin 15.1 g/dL (13.5-17.5); Lymphocytes # (auto) 0.6 uL; Lymphocytes % (auto) 2.9 % (10.0-50.0); Mean Corpuscular Hemoglobin 30.1 pg (28.0-32.0); Mean Corpuscular Hgb Conc. 34.8 g/dL (32.0-36.0); Mean Corpuscular Volume 86.3 fL (80.0-100.0); Monocytes # (auto) 1.3 uL; Monocytes % (auto) 6.2 % (0.0-12.0); Neutrophils # (auto) 19.3 uL; Neutrophils % (auto) 90.7 % (37.0-80.0); Nucleated Red Blood Cells % 0.1 %; Platelet Count (auto) 162 10^3/uL (140-450); Red Blood Cells 5.01 10^6/uL (4.5-5.90); Red Cell Distribution Width 14.6 % (11.8-14.3); White Blood Cell 21.2 10^3/uL (4.4-10.8)
[2018-03-27 07:08] LABS: INR 2.23 (0.9-1.15); Partial Thromboplastin Time 30.8 sec (23.78-33.04); Prothrombin Time 22.8 sec (9.27-12.13)
[2018-03-27] MEDS: IPRATROPIUM BROM 0.5 MG/2.5ML INH SOL NEB SCH ×3 (07:08→18:57)
[2018-03-27] MEDS: ALBUTEROL SULF 2.5 MG/0.5ML(0.5%) NEB SOLN NEB SCH ×3 (07:08→18:57)
[2018-03-27 07:12] LABS: BUN/Creatinine Ratio 40.1; Calcium 8.6 mg/dL (8.5-10.1); Magnesium 2.9 mg/dL (1.6-2.6); Potassium 4.7 mmol/L (3.5-5.1)
[2018-03-27] MEDS: cefTRIAXone 1GM/10ml IVPUSH 10 ML IV SCH (09:02)
[2018-03-27] MEDS: SODIUM CHLOR 0.9% PF (SALINE LOCK) 10ML VIAL/SYR IV SCH ×2 (09:02→22:03)
[2018-03-27] MEDS: predniSONE 20 MG TAB PO SCH (09:03)
[2018-03-27] MEDS: AMIODARONE HCL 200 MG TAB PO SCH (09:03)
[2018-03-27] MEDS: ACETAMINOPHEN 500 MG TAB PO PRN (09:47)
[2018-03-27] MEDS: ONDANSETRON HCL 4 MG/2 ML VIAL IV PRN (09:58)
[2018-03-27] MEDS: CARVEDILOL 3.125 MG TAB PO SCH ×2 (10:00→22:00)
[2018-03-27] MEDS ORDERED: DOCUSATE SOD 100 MG CAP PO ONE (10:15)
[2018-03-27] MEDS ORDERED: BISACODYL 10 MG RECT SUPP PR ONE (10:15)
[2018-03-27] MEDS ORDERED: ALBUMIN 25% 100 ML IV SCH (14:00)
[2018-03-27] MEDS ORDERED: WARFARIN SODIUM 5 MG TAB PO ONE (17:00)
[2018-03-27 22:21] LABS: BUN/Creatinine Ratio 37.5; Calcium 8.5 mg/dL (8.5-10.1); Magnesium 3.6 mg/dL (1.6-2.6); Potassium 5.2 mmol/L (3.5-5.1)
[2018-03-27] MEDS: DOCUSATE SOD 100 MG CAP PO SCH (22:31)
[2018-03-28] MEDS: ALBUTEROL SULF 2.5 MG/0.5ML(0.5%) NEB SOLN NEB SCH ×5 (01:14→19:20)
[2018-03-28] MEDS: IPRATROPIUM BROM 0.5 MG/2.5ML INH SOL NEB SCH ×5 (01:14→19:20)
[2018-03-28] MEDS: ACETAMINOPHEN/CODEINE#3 (300/30mg) TAB PO PRN (01:22)
[2018-03-28 05:00] VITALS: BP 85/59
[2018-03-28 06:34] LABS: Basophils # (auto) 0.1 uL; Basophils % (auto) 0.3 % (0.0-2.0); Eosinophils # (auto) 0 uL; Hematocrit 45.6 % (41.0-53.0); Hemoglobin 15.5 g/dL (13.5-17.5); Lymphocytes # (auto) 0.5 uL; Lymphocytes % (auto) 2.4 % (10.0-50.0); Mean Corpuscular Hemoglobin 29.8 pg (28.0-32.0); Mean Corpuscular Volume 87.5 fL (80.0-100.0); Monocytes # (auto) 1.5 uL; Monocytes % (auto) 6.7 % (0.0-12.0); Neutrophils # (auto) 20.1 uL; Neutrophils % (auto) 90.6 % (37.0-80.0); Nucleated Red Blood Cells % 0.2 %; Platelet Count (auto) 169 10^3/uL (140-450); Red Cell Distribution Width 14.6 % (11.8-14.3); White Blood Cell 22.2 10^3/uL (4.4-10.8)
[2018-03-28 06:46] LABS: INR 2.44 (0.9-1.15); Partial Thromboplastin Time 31.5 sec (23.78-33.04); Prothrombin Time 24.8 sec (9.27-12.13)
[2018-03-28] MEDS: InsuLIN REG 1unit/0.01ml Soln (100units/ml) SC SCH ×4 (06:46→23:25)
[2018-03-28] MEDS: ACCU-CHEK COMFORT CURVE STRIP VI SCH ×4 (06:47→23:25)
[2018-03-28 07:00] LABS: BUN/Creatinine Ratio 40.7; Calcium 8.4 mg/dL (8.5-10.1); Potassium 5.1 mmol/L (3.5-5.1)
[2018-03-28 08:00] VITALS: BP 88/55
[2018-03-28 09:00] VITALS: BP 88/55
[2018-03-28] MEDS: predniSONE 20 MG TAB PO SCH (09:12)
[2018-03-28] MEDS: cefTRIAXone 1GM/10ml IVPUSH 10 ML IV SCH (09:12)
[2018-03-28] MEDS: SODIUM CHLOR 0.9% PF (SALINE LOCK) 10ML VIAL/SYR IV SCH ×2 (09:12→23:25)
[2018-03-28] MEDS: AMIODARONE HCL 200 MG TAB PO SCH (09:13)
[2018-03-28] MEDS: DOCUSATE SOD 100 MG CAP PO SCH ×2 (09:13→23:25)
[2018-03-28] MEDS: CARVEDILOL 3.125 MG TAB PO SCH ×2 (09:14→23:25)
[2018-03-28 13:00] VITALS: BP 87/62
[2018-03-28] MEDS ORDERED: PANTOPRAZOLE 40 MG/10 ML VIAL IV ONE (13:45)
[2018-03-28] MEDS ORDERED: SODIUM CHLORIDE 0.9% 500 ML IV ONE (13:45)
[2018-03-28] MEDS ORDERED: SODIUM CHLORIDE 0.9% 250 ML IV ONE (15:30)
[2018-03-28] MEDS: ACETAMINOPHEN 500 MG TAB PO PRN (16:34)
[2018-03-28 17:00] VITALS: BP 71/47
[2018-03-28] MEDS ORDERED: WARFARIN SODIUM 5 MG TAB PO ONE (17:00)
[2018-03-28] MEDS: SODIUM CHLORIDE 0.9% 1,000 ML IV SCH (17:52)
[2018-03-28] MEDS: PIPERACILLIN-TAZOB 2.25GM 50 ML IV SCH ×2 (17:52→23:25)
[2018-03-28] MEDS: DOPamine 3200MCG/ML 250 ML IV SCH (19:20)
[2018-03-28] MEDS: ONDANSETRON HCL 4 MG/2 ML VIAL IV PRN (19:58)
[2018-03-28 22:00] VITALS: BP 106/61
[2018-03-28] MEDS ORDERED: NALBUPHINE HCL 10 MG/1ml INJECTION IV PRN (22:15)
[2018-03-28] MEDS: NALBUPHINE HCL 10 MG/1ml INJECTION IV PRN (23:25)
[2018-03-29] MEDS: ALBUTEROL SULF 2.5 MG/0.5ML(0.5%) NEB SOLN NEB SCH ×4 (00:37→18:56)
[2018-03-29] MEDS: IPRATROPIUM BROM 0.5 MG/2.5ML INH SOL NEB SCH ×4 (00:37→18:56)
[2018-03-29] MEDS: SODIUM CHLORIDE 0.9% 1,000 ML IV SCH ×3 (04:51→18:50)
[2018-03-29 05:00] VITALS: BP 105/69
[2018-03-29] MEDS: NALBUPHINE HCL 10 MG/1ml INJECTION IV PRN ×2 (06:35→14:19)
[2018-03-29] MEDS: PIPERACILLIN-TAZOB 2.25GM 50 ML IV SCH ×3 (06:36→22:43)
[2018-03-29 06:52] LABS: Basophils # (auto) 0.1 uL; Basophils % (auto) 0.3 % (0.0-2.0); Eosinophils # (auto) 0 uL; Hematocrit 41.9 % (41.0-53.0); Hemoglobin 14.5 g/dL (13.5-17.5); Lymphocytes # (auto) 0.4 uL; Lymphocytes % (auto) 1.8 % (10.0-50.0); Mean Corpuscular Hemoglobin 30.2 pg (28.0-32.0); Mean Corpuscular Hgb Conc. 34.6 g/dL (32.0-36.0); Mean Corpuscular Volume 87.3 fL (80.0-100.0); Monocytes % (auto) 4.6 % (0.0-12.0); Neutrophils # (auto) 19.7 uL; Neutrophils % (auto) 93.3 % (37.0-80.0); Platelet Count (auto) 157 10^3/uL (140-450); Red Cell Distribution Width 14.8 % (11.8-14.3); White Blood Cell 21.1 10^3/uL (4.4-10.8)
[2018-03-29] MEDS: ACCU-CHEK COMFORT CURVE STRIP VI SCH ×4 (06:58→22:43)
[2018-03-29] MEDS: InsuLIN REG 1unit/0.01ml Soln (100units/ml) SC SCH ×4 (06:58→22:43)
[2018-03-29 07:17] LABS: Partial Thromboplastin Time 36.2 sec (23.78-33.04); Prothrombin Time 44.3 sec (9.27-12.13)
[2018-03-29 07:29] LABS: BUN/Creatinine Ratio 33.8; Calcium 7.9 mg/dL (8.5-10.1); Potassium 5.2 mmol/L (3.5-5.1)
[2018-03-29 07:42] LABS: INR 4.51 (0.9-1.15)
[2018-03-29] MEDS ORDERED: SODIUM CHLORIDE 0.9% 500 ML IV ONE (08:45)
[2018-03-29 08:46] VITALS: BP 109/64
[2018-03-29] MEDS: PROMETHAZINE HCL 25 MG/ML 1ML IV PRN (09:28)
[2018-03-29] MEDS ORDERED: PANTOPRAZOLE 40 MG TAB PO SCH (10:00)
[2018-03-29] MEDS: SODIUM CHLOR 0.9% PF (SALINE LOCK) 10ML VIAL/SYR IV SCH ×2 (10:00→22:43)
[2018-03-29] MEDS: predniSONE 20 MG TAB PO SCH (10:00)
[2018-03-29] MEDS: CARVEDILOL 3.125 MG TAB PO SCH ×2 (10:00→21:57)
[2018-03-29] MEDS: AMIODARONE HCL 200 MG TAB PO SCH (10:00)
[2018-03-29] MEDS: DOCUSATE SOD 100 MG CAP PO SCH ×2 (10:00→21:56)
[2018-03-29] MEDS ORDERED: GASTROGRAFIN 120 ML SOL ONE (11:52)
[2018-03-29 13:00] VITALS: BP 92/61
[2018-03-29 17:00] VITALS: BP 103/65
[2018-03-29] MEDS: DOPamine 3200MCG/ML 250 ML IV SCH (18:00)
[2018-03-29 18:52] LABS: BUN/Creatinine Ratio 35.3; Calcium 7.9 mg/dL (8.5-10.1); Potassium 4.8 mmol/L (3.5-5.1)
[2018-03-29 20:47] LABS: Urine Bacteria NONE SEEN /hpf (None Seen); Urine Blood 3+ /uL (Negative); Urine WBC 3 /hpf (0 - 3)
[2018-03-29 21:04] LABS: Creatinine, Urine 80 mg/dL (30.0-125.0); Sodium Urine 52 mmol/L (40-220)
[2018-03-29 21:55] VITALS: BP 98/61
[2018-03-30] MEDS: ALBUTEROL SULF 2.5 MG/0.5ML(0.5%) NEB SOLN NEB SCH ×4 (00:58→19:29)
[2018-03-30] MEDS: IPRATROPIUM BROM 0.5 MG/2.5ML INH SOL NEB SCH ×4 (00:58→19:29)
[2018-03-30] MEDS: SODIUM CHLORIDE 0.9% 1,000 ML IV SCH ×2 (04:47→14:45)
[2018-03-30] MEDS: PIPERACILLIN-TAZOB 2.25GM 50 ML IV SCH (05:07)
[2018-03-30] MEDS: NALBUPHINE HCL 10 MG/1ml INJECTION IV PRN ×2 (05:07→22:00)
[2018-03-30 05:26] VITALS: BP 91/60
[2018-03-30] MEDS: ACCU-CHEK COMFORT CURVE STRIP VI SCH ×4 (06:08→21:39)
[2018-03-30] MEDS: InsuLIN REG 1unit/0.01ml Soln (100units/ml) SC SCH ×4 (06:08→21:40)
[2018-03-30 06:42] LABS: BUN/Creatinine Ratio 40.7; Calcium 7.8 mg/dL (8.5-10.1); Potassium 4.2 mmol/L (3.5-5.1)
[2018-03-30 09:00] VITALS: BP 91/59
[2018-03-30] MEDS: DOPamine 3200MCG/ML 250 ML IV SCH (09:02)
[2018-03-30] MEDS: CARVEDILOL 3.125 MG TAB PO SCH ×2 (10:00→21:39)
[2018-03-30] MEDS ORDERED: CEFTRIAXONE SODIUM 2 GM in D5W 5% 50 ML IV ONE (10:45)
[2018-03-30] MEDS ORDERED: metroNIDAZOLE 500MG/100ML 100 ML IV SCH ×2 (11:00→11:15)
[2018-03-30] MEDS: DOCUSATE SOD 100 MG CAP PO SCH ×2 (11:04→21:37)
[2018-03-30] MEDS: predniSONE 20 MG TAB PO SCH (11:05)
[2018-03-30] MEDS: SODIUM CHLOR 0.9% PF (SALINE LOCK) 10ML VIAL/SYR IV SCH ×2 (11:59→21:37)
[2018-03-30] MEDS: AMIODARONE HCL 200 MG TAB PO SCH (11:59)
[2018-03-30 12:16] VITALS: BP 95/59
[2018-03-30] MEDS: metroNIDAZOLE 500MG/100ML 100 ML IV SCH ×2 (13:44→21:32)
[2018-03-30 14:50] VITALS: BP 91/60
[2018-03-30 17:25] VITALS: BP 95/60
[2018-03-30 22:00] VITALS: BP 100/64
[2018-03-31] MEDS: IPRATROPIUM BROM 0.5 MG/2.5ML INH SOL NEB SCH ×4 (01:59→17:50)
[2018-03-31] MEDS: ALBUTEROL SULF 2.5 MG/0.5ML(0.5%) NEB SOLN NEB SCH ×4 (01:59→17:50)
[2018-03-31] MEDS: SODIUM CHLORIDE 0.9% 1,000 ML IV SCH ×3 (02:57→21:33)
[2018-03-31 05:00] VITALS: BP 106/59
[2018-03-31] MEDS: ACCU-CHEK COMFORT CURVE STRIP VI SCH ×4 (06:11→21:38)
[2018-03-31] MEDS: InsuLIN REG 1unit/0.01ml Soln (100units/ml) SC SCH ×4 (06:11→21:39)
[2018-03-31] MEDS: metroNIDAZOLE 500MG/100ML 100 ML IV SCH ×3 (06:11→21:37)
[2018-03-31 08:00] VITALS: BP 91/59
[2018-03-31 08:43] VITALS: BP 110/61
[2018-03-31] MEDS: cefTRIAXone 1GM/10ml IVPUSH 10 ML IV SCH (09:43)
[2018-03-31] MEDS: predniSONE 20 MG TAB PO SCH (09:43)
[2018-03-31] MEDS: DOCUSATE SOD 100 MG CAP PO SCH ×2 (09:44→21:37)
[2018-03-31] MEDS: AMIODARONE HCL 200 MG TAB PO SCH (09:44)
[2018-03-31] MEDS: PANTOPRAZOLE 40 MG/10 ML VIAL IV SCH (09:45)
[2018-03-31] MEDS: SODIUM CHLOR 0.9% PF (SALINE LOCK) 10ML VIAL/SYR IV SCH ×2 (09:48→21:37)
[2018-03-31] MEDS: CARVEDILOL 3.125 MG TAB PO SCH ×2 (10:00→21:38)
[2018-03-31 10:08] LABS: BUN/Creatinine Ratio 47.7; Potassium 4.7 mmol/L (3.5-5.1)
[2018-03-31 11:57] LABS: Basophils # (auto) 0 uL; Eosinophils # (auto) 0 uL; Hematocrit 47.7 % (41.0-53.0); Hemoglobin 15.6 g/dL (13.5-17.5); Lymphocytes # (auto) 0.5 uL; Lymphocytes % (auto) 2.3 % (10.0-50.0); Mean Corpuscular Hemoglobin 29.6 pg (28.0-32.0); Mean Corpuscular Hgb Conc. 32.7 g/dL (32.0-36.0); Mean Corpuscular Volume 90.5 fL (80.0-100.0); Monocytes # (auto) 2.2 uL; Monocytes % (auto) 9.5 % (0.0-12.0); Neutrophils # (auto) 20.8 uL; Neutrophils % (auto) 88.2 % (37.0-80.0); Nucleated Red Blood Cells % 0.1 %; Platelet Count (auto) 122 10^3/uL (140-450); Red Blood Cells 5.28 10^6/uL (4.5-5.90); Red Cell Distribution Width 15.2 % (11.8-14.3); White Blood Cell 23.5 10^3/uL (4.4-10.8)
[2018-03-31 12:30] VITALS: BP 101/60
[2018-03-31 16:31] VITALS: BP 100/66
[2018-03-31] MEDS: DOPamine 3200MCG/ML 250 ML IV SCH (17:44)
[2018-03-31 21:40] VITALS: BP 116/66
[2018-03-31] MEDS: NALBUPHINE HCL 10 MG/1ml INJECTION IV PRN (22:41)
[2018-04-01] MEDS: ALBUTEROL SULF 2.5 MG/0.5ML(0.5%) NEB SOLN NEB SCH ×4 (00:24→19:00)
[2018-04-01] MEDS: IPRATROPIUM BROM 0.5 MG/2.5ML INH SOL NEB SCH ×4 (00:24→19:00)
[2018-04-01 05:20] VITALS: BP 108/69
[2018-04-01] MEDS: metroNIDAZOLE 500MG/100ML 100 ML IV SCH ×3 (06:23→21:43)
[2018-04-01] MEDS: SODIUM CHLORIDE 0.9% 1,000 ML IV SCH (06:23)
[2018-04-01] MEDS: InsuLIN REG 1unit/0.01ml Soln (100units/ml) SC SCH ×4 (06:24→21:50)
[2018-04-01] MEDS: ACCU-CHEK COMFORT CURVE STRIP VI SCH ×4 (06:24→21:48)
[2018-04-01 08:00] VITALS: BP 110/70
[2018-04-01 08:30] VITALS: BP 110/70
[2018-04-01] MEDS: cefTRIAXone 1GM/10ml IVPUSH 10 ML IV SCH (09:07)
[2018-04-01] MEDS: NALBUPHINE HCL 10 MG/1ml INJECTION IV PRN ×2 (09:07→22:12)
[2018-04-01] MEDS ORDERED: SOD CHL 0.45% 1,000 ML IV ONE (09:45)
[2018-04-01 09:53] LABS: Basophils # (auto) 0 uL; Basophils % (auto) 0.1 % (0.0-2.0); Eosinophils # (auto) 0 uL; Eosinophils % (auto) 0.1 % (0.0-7.0); Hematocrit 44.6 % (41.0-53.0); Lymphocytes # (auto) 0.5 uL; Lymphocytes % (auto) 3.2 % (10.0-50.0); Mean Corpuscular Hemoglobin 29.6 pg (28.0-32.0); Mean Corpuscular Hgb Conc. 33.6 g/dL (32.0-36.0); Mean Corpuscular Volume 88.2 fL (80.0-100.0); Monocytes # (auto) 0.9 uL; Monocytes % (auto) 5.4 % (0.0-12.0); Neutrophils # (auto) 15.1 uL; Neutrophils % (auto) 91.2 % (37.0-80.0); Platelet Count (auto) 150 10^3/uL (140-450); Red Blood Cells 5.06 10^6/uL (4.5-5.90); Red Cell Distribution Width 14.6 % (11.8-14.3); White Blood Cell 16.5 10^3/uL (4.4-10.8)
[2018-04-01 09:58] LABS: BUN/Creatinine Ratio 47.7; Calcium 8.2 mg/dL (8.5-10.1); Potassium 4.5 mmol/L (3.5-5.1)
[2018-04-01] MEDS: CARVEDILOL 3.125 MG TAB PO SCH ×2 (10:00→21:45)
[2018-04-01] MEDS: PANTOPRAZOLE 40 MG/10 ML VIAL IV SCH (10:33)
[2018-04-01] MEDS: AMIODARONE HCL 200 MG TAB PO SCH (10:34)
[2018-04-01] MEDS: DOCUSATE SOD 100 MG CAP PO SCH ×2 (10:34→21:43)
[2018-04-01] MEDS: predniSONE 20 MG TAB PO SCH (10:34)
[2018-04-01] MEDS: SODIUM CHLOR 0.9% PF (SALINE LOCK) 10ML VIAL/SYR IV SCH ×2 (11:59→21:43)
[2018-04-01 12:30] VITALS: BP 103/69
[2018-04-01 16:36] VITALS: BP 115/69
[2018-04-01] MEDS: DOPamine 3200MCG/ML 250 ML IV SCH (18:00)
[2018-04-01 22:00] VITALS: BP 106/63
[2018-04-02] VITALS (7 sets, daily range): BP systolic 93–121; BP diastolic 58–69
[2018-04-02] MEDS: IPRATROPIUM BROM 0.5 MG/2.5ML INH SOL NEB SCH ×4 (00:31→18:51)
[2018-04-02] MEDS: ALBUTEROL SULF 2.5 MG/0.5ML(0.5%) NEB SOLN NEB SCH ×4 (00:31→18:51)
[2018-04-02] MEDS: DOPamine 3200MCG/ML 250 ML IV SCH (02:59)
[2018-04-02] MEDS: NALBUPHINE HCL 10 MG/1ml INJECTION IV PRN (03:06)
[2018-04-02] MEDS: metroNIDAZOLE 500MG/100ML 100 ML IV SCH ×3 (05:58→21:43)
[2018-04-02 06:05] LABS: Basophils # (auto) 0 uL; Eosinophils # (auto) 0 uL; Eosinophils % (auto) 0.2 % (0.0-7.0); Hematocrit 45.7 % (41.0-53.0); Hemoglobin 15.2 g/dL (13.5-17.5); Lymphocytes # (auto) 0.7 uL; Lymphocytes % (auto) 3.5 % (10.0-50.0); Mean Corpuscular Hemoglobin 29.8 pg (28.0-32.0); Mean Corpuscular Hgb Conc. 33.2 g/dL (32.0-36.0); Mean Corpuscular Volume 89.8 fL (80.0-100.0); Monocytes # (auto) 1.3 uL; Monocytes % (auto) 6.4 % (0.0-12.0); Neutrophils % (auto) 89.9 % (37.0-80.0); Platelet Count (auto) 128 10^3/uL (140-450); Red Blood Cells 5.09 10^6/uL (4.5-5.90); Red Cell Distribution Width 14.9 % (11.8-14.3); White Blood Cell 20.1 10^3/uL (4.4-10.8)
[2018-04-02] MEDS: ACCU-CHEK COMFORT CURVE STRIP VI SCH ×4 (06:05→21:39)
[2018-04-02] MEDS: InsuLIN REG 1unit/0.01ml Soln (100units/ml) SC SCH ×4 (06:05→21:42)
[2018-04-02 06:28] LABS: BUN/Creatinine Ratio 41.5; Potassium 4.4 mmol/L (3.5-5.1)
[2018-04-02] MEDS: PROMETHAZINE HCL 25 MG/ML 1ML IV PRN (08:28)
[2018-04-02] MEDS: cefTRIAXone 1GM/10ml IVPUSH 10 ML IV SCH (08:31)
[2018-04-02] MEDS: PANTOPRAZOLE 40 MG/10 ML VIAL IV SCH (09:44)
[2018-04-02] MEDS: AMIODARONE HCL 200 MG TAB PO SCH (09:44)
[2018-04-02] MEDS: predniSONE 20 MG TAB PO SCH (09:44)
[2018-04-02] MEDS: DOCUSATE SOD 100 MG CAP PO SCH ×2 (09:45→21:42)
[2018-04-02] MEDS: CARVEDILOL 3.125 MG TAB PO SCH ×2 (09:45→21:39)
[2018-04-02] MEDS: SODIUM CHLOR 0.9% PF (SALINE LOCK) 10ML VIAL/SYR IV SCH ×2 (10:53→21:43)
[2018-04-03] MEDS: NALBUPHINE HCL 10 MG/1ml INJECTION IV PRN (01:56)
[2018-04-03 05:40] VITALS: BP 95/65
[2018-04-03] MEDS: metroNIDAZOLE 500MG/100ML 100 ML IV SCH ×3 (06:00→21:38)
[2018-04-03] MEDS: IPRATROPIUM BROM 0.5 MG/2.5ML INH SOL NEB SCH ×4 (06:30→19:05)
[2018-04-03] MEDS: ALBUTEROL SULF 2.5 MG/0.5ML(0.5%) NEB SOLN NEB SCH ×4 (06:30→19:05)
[2018-04-03] MEDS: InsuLIN REG 1unit/0.01ml Soln (100units/ml) SC SCH ×4 (07:00→22:03)
[2018-04-03] MEDS: ACCU-CHEK COMFORT CURVE STRIP VI SCH ×4 (07:10→22:02)
[2018-04-03 08:00] VITALS: BP 116/69
[2018-04-03 08:52] LABS: Hematocrit 45.3 % (41.0-53.0); Hemoglobin 14.8 g/dL (13.5-17.5); Mean Corpuscular Hemoglobin 29.4 pg (28.0-32.0); Mean Corpuscular Hgb Conc. 32.7 g/dL (32.0-36.0); Mean Corpuscular Volume 90.1 fL (80.0-100.0); Platelet Count (auto) 138 10^3/uL (140-450); Red Blood Cells 5.03 10^6/uL (4.5-5.90); Red Cell Distribution Width 15.2 % (11.8-14.3); White Blood Cell 24.3 10^3/uL (4.4-10.8)
[2018-04-03 08:58] LABS: Basophils % (manual) 0 (0.0-2.0); Blast Cells 0; Eosinophils % (manual) 0 (0-7); Monocytes % (manual) 0 (0-12); Promyelocytes % 0; Reactive Lymphocytes 0
[2018-04-03 09:00] VITALS: BP 116/69
[2018-04-03 09:10] LABS: BUN/Creatinine Ratio 31.5; Calcium 8.2 mg/dL (8.5-10.1); Potassium 4.4 mmol/L (3.5-5.1)
[2018-04-03] MEDS: DOCUSATE SOD 100 MG CAP PO SCH ×2 (09:42→21:36)
[2018-04-03] MEDS: PANTOPRAZOLE 40 MG/10 ML VIAL IV SCH (09:42)
[2018-04-03] MEDS: cefTRIAXone 1GM/10ml IVPUSH 10 ML IV SCH (09:42)
[2018-04-03] MEDS: AMIODARONE HCL 200 MG TAB PO SCH (09:42)
[2018-04-03] MEDS: CARVEDILOL 3.125 MG TAB PO SCH ×2 (09:43→21:37)
[2018-04-03] MEDS: predniSONE 20 MG TAB PO SCH (09:43)
[2018-04-03] MEDS: SODIUM CHLOR 0.9% PF (SALINE LOCK) 10ML VIAL/SYR IV SCH ×2 (09:44→21:38)
[2018-04-03] MEDS: PROMETHAZINE HCL 25 MG/ML 1ML IV PRN (10:21)
[2018-04-03 10:22] LABS: Band Neutrophils % (manual) 1; Lymphocytes % (manual) 3 (10.0-50.0); Metamyelocytes % 1; Myelocytes % 1
[2018-04-03 13:00] VITALS: BP 100/63
[2018-04-03 17:00] VITALS: BP 121/73
[2018-04-03] MEDS: DOPamine 3200MCG/ML 250 ML IV SCH (17:34)
[2018-04-03 22:00] VITALS: BP 120/73
[2018-04-04] MEDS: IPRATROPIUM BROM 0.5 MG/2.5ML INH SOL NEB SCH ×4 (00:58→18:47)
[2018-04-04] MEDS: ALBUTEROL SULF 2.5 MG/0.5ML(0.5%) NEB SOLN NEB SCH ×4 (00:58→18:47)
[2018-04-04 05:00] VITALS: BP 107/65
[2018-04-04] MEDS: metroNIDAZOLE 500MG/100ML 100 ML IV SCH ×3 (06:03→22:16)
[2018-04-04] MEDS: InsuLIN REG 1unit/0.01ml Soln (100units/ml) SC SCH ×4 (06:31→22:17)
[2018-04-04] MEDS: ACCU-CHEK COMFORT CURVE STRIP VI SCH ×4 (06:31→22:17)
[2018-04-04 09:00] VITALS: BP 105/66
[2018-04-04 09:19] LABS: Basophils # (auto) 0 uL; Eosinophils # (auto) 0.1 uL; Eosinophils % (auto) 0.7 % (0.0-7.0); Hematocrit 43.1 % (41.0-53.0); Hemoglobin 14.2 g/dL (13.5-17.5); Lymphocytes # (auto) 1.2 uL; Lymphocytes % (auto) 6.2 % (10.0-50.0); Mean Corpuscular Hemoglobin 29.1 pg (28.0-32.0); Mean Corpuscular Volume 88.3 fL (80.0-100.0); Monocytes # (auto) 0.7 uL; Monocytes % (auto) 3.8 % (0.0-12.0); Neutrophils # (auto) 17.8 uL; Neutrophils % (auto) 89.3 % (37.0-80.0); Platelet Count (auto) 133 10^3/uL (140-450); Red Blood Cells 4.88 10^6/uL (4.5-5.90); White Blood Cell 19.9 10^3/uL (4.4-10.8)
[2018-04-04 09:23] LABS: BUN/Creatinine Ratio 27.3; Calcium 8.2 mg/dL (8.5-10.1); Potassium 4.3 mmol/L (3.5-5.1)
[2018-04-04] MEDS: PANTOPRAZOLE 40 MG/10 ML VIAL IV SCH (11:02)
[2018-04-04] MEDS: predniSONE 20 MG TAB PO SCH (11:03)
[2018-04-04] MEDS: SODIUM CHLOR 0.9% PF (SALINE LOCK) 10ML VIAL/SYR IV SCH ×2 (11:03→22:16)
[2018-04-04] MEDS: CARVEDILOL 3.125 MG TAB PO SCH ×2 (11:04→22:00)
[2018-04-04] MEDS: AMIODARONE HCL 200 MG TAB PO SCH (11:05)
[2018-04-04] MEDS: DOCUSATE SOD 100 MG CAP PO SCH ×2 (11:05→22:16)
[2018-04-04] MEDS: cefTRIAXone 1GM/10ml IVPUSH 10 ML IV SCH (12:09)
[2018-04-04 13:00] VITALS: BP 92/57
[2018-04-04 17:00] VITALS: BP 103/61
[2018-04-04] MEDS ORDERED: VANCOMYCIN PER PHARMACY 0 MG IV SCH (18:00)
[2018-04-04] MEDS: DOPamine 3200MCG/ML 250 ML IV SCH (18:26)
[2018-04-04] MEDS ORDERED: VANCOMYCIN 1GM/250ML 250 ML IV ONE (18:40)
[2018-04-04 22:00] VITALS: BP 164/101
[2018-04-04 23:40] VITALS: BP 92/52
[2018-04-05] MEDS: IPRATROPIUM BROM 0.5 MG/2.5ML INH SOL NEB SCH ×4 (00:32→18:41)
[2018-04-05] MEDS: ALBUTEROL SULF 2.5 MG/0.5ML(0.5%) NEB SOLN NEB SCH ×4 (00:32→18:41)
[2018-04-05 05:00] VITALS: BP 102/60
[2018-04-05] MEDS: metroNIDAZOLE 500MG/100ML 100 ML IV SCH ×3 (06:06→22:31)
[2018-04-05 06:14] LABS: Basophils # (auto) 0 uL; Basophils % (auto) 0.1 % (0.0-2.0); Eosinophils # (auto) 0 uL; Hematocrit 39.3 % (41.0-53.0); Hemoglobin 13.3 g/dL (13.5-17.5); Lymphocytes # (auto) 0.5 uL; Lymphocytes % (auto) 2.1 % (10.0-50.0); Mean Corpuscular Hemoglobin 29.8 pg (28.0-32.0); Mean Corpuscular Hgb Conc. 33.8 g/dL (32.0-36.0); Mean Corpuscular Volume 88.2 fL (80.0-100.0); Monocytes # (auto) 0.6 uL; Monocytes % (auto) 2.8 % (0.0-12.0); Neutrophils # (auto) 20.3 uL; Platelet Count (auto) 109 10^3/uL (140-450); Red Blood Cells 4.46 10^6/uL (4.5-5.90); Red Cell Distribution Width 14.4 % (11.8-14.3); White Blood Cell 21.4 10^3/uL (4.4-10.8)
[2018-04-05 06:27] LABS: INR 1.52 (0.9-1.15); Prothrombin Time 15.9 sec (9.27-12.13)
[2018-04-05 06:35] LABS: BUN/Creatinine Ratio 34.6; Calcium 7.8 mg/dL (8.5-10.1); Potassium 4.3 mmol/L (3.5-5.1)
[2018-04-05] MEDS: InsuLIN REG 1unit/0.01ml Soln (100units/ml) SC SCH ×4 (06:45→22:51)
[2018-04-05] MEDS: ACCU-CHEK COMFORT CURVE STRIP VI SCH ×4 (06:45→22:34)
[2018-04-05 09:00] VITALS: BP 109/69
[2018-04-05] MEDS: PANTOPRAZOLE 40 MG/10 ML VIAL IV SCH (10:25)
[2018-04-05] MEDS: cefTRIAXone 1GM/10ml IVPUSH 10 ML IV SCH (10:25)
[2018-04-05] MEDS: AMIODARONE HCL 200 MG TAB PO SCH (10:26)
[2018-04-05] MEDS: predniSONE 20 MG TAB PO SCH (10:26)
[2018-04-05] MEDS: SODIUM CHLOR 0.9% PF (SALINE LOCK) 10ML VIAL/SYR IV SCH ×2 (10:27→22:33)
[2018-04-05] MEDS: DOCUSATE SOD 100 MG CAP PO SCH ×2 (10:27→22:32)
[2018-04-05] MEDS: CARVEDILOL 3.125 MG TAB PO SCH ×2 (10:27→22:32)
[2018-04-05 10:33] VITALS: BP 109/69
[2018-04-05] MEDS: ACETAMINOPHEN 500 MG TAB PO PRN ×2 (10:43→18:57)
[2018-04-05 12:52] VITALS: BP 100/69
[2018-04-05] MEDS: VANCOMYCIN 1GM/250ML 250 ML IV SCH (14:52)
[2018-04-05 17:00] VITALS: BP 109/68
[2018-04-05] MEDS: DOPamine 3200MCG/ML 250 ML IV SCH (18:36)
[2018-04-05 22:00] VITALS: BP 101/68
[2018-04-05] MEDS: NALBUPHINE HCL 10 MG/1ml INJECTION IV PRN (22:33)
[2018-04-05] MEDS: PROMETHAZINE HCL 25 MG/ML 1ML IV PRN (22:34)
[2018-04-06] MEDS: VANCOMYCIN 1GM/250ML 250 ML IV SCH ×2 (04:17→18:33)
[2018-04-06 05:00] VITALS: BP 92/61
[2018-04-06] MEDS: ALBUTEROL SULF 2.5 MG/0.5ML(0.5%) NEB SOLN NEB SCH ×4 (05:46→19:36)
[2018-04-06] MEDS: IPRATROPIUM BROM 0.5 MG/2.5ML INH SOL NEB SCH ×4 (05:46→19:36)
[2018-04-06 06:29] LABS: Basophils # (auto) 0 uL; Basophils % (auto) 0.1 % (0.0-2.0); Eosinophils # (auto) 0.1 uL; Eosinophils % (auto) 0.4 % (0.0-7.0); Hemoglobin 14.2 g/dL (13.5-17.5); Lymphocytes # (auto) 1.1 uL; Lymphocytes % (auto) 4.9 % (10.0-50.0); Mean Corpuscular Hemoglobin 29.2 pg (28.0-32.0); Mean Corpuscular Hgb Conc. 33.8 g/dL (32.0-36.0); Mean Corpuscular Volume 86.6 fL (80.0-100.0); Monocytes % (auto) 4.5 % (0.0-12.0); Neutrophils % (auto) 90.1 % (37.0-80.0); Platelet Count (auto) 100 10^3/uL (140-450); Red Blood Cells 4.85 10^6/uL (4.5-5.90); Red Cell Distribution Width 14.6 % (11.8-14.3); White Blood Cell 22.2 10^3/uL (4.4-10.8)
[2018-04-06] MEDS: metroNIDAZOLE 500MG/100ML 100 ML IV SCH ×3 (06:30→22:28)
[2018-04-06] MEDS: ACCU-CHEK COMFORT CURVE STRIP VI SCH ×4 (06:30→22:30)
[2018-04-06] MEDS: InsuLIN REG 1unit/0.01ml Soln (100units/ml) SC SCH ×4 (06:40→22:30)
[2018-04-06 06:48] LABS: BUN/Creatinine Ratio 31.2; Calcium 7.6 mg/dL (8.5-10.1); Potassium 4.3 mmol/L (3.5-5.1)
[2018-04-06 09:00] VITALS: BP 85/57
[2018-04-06] MEDS ORDERED: LACTULOSE 20Gm/30ML SOLN PO ONE (09:30)
[2018-04-06] MEDS: PANTOPRAZOLE 40 MG/10 ML VIAL IV SCH (09:31)
[2018-04-06] MEDS: cefTRIAXone 1GM/10ml IVPUSH 10 ML IV SCH (09:31)
[2018-04-06] MEDS: predniSONE 20 MG TAB PO SCH (09:32)
[2018-04-06] MEDS: SODIUM CHLOR 0.9% PF (SALINE LOCK) 10ML VIAL/SYR IV SCH ×2 (09:32→22:28)
[2018-04-06] MEDS: DOCUSATE SOD 100 MG CAP PO SCH ×2 (09:40→22:29)
[2018-04-06] MEDS: AMIODARONE HCL 200 MG TAB PO SCH (09:40)
[2018-04-06] MEDS: CARVEDILOL 3.125 MG TAB PO SCH ×2 (09:40→22:29)
[2018-04-06 13:00] VITALS: BP 101/71
[2018-04-06 17:00] VITALS: BP 101/68
[2018-04-06] MEDS: DOPamine 3200MCG/ML 250 ML IV SCH (17:53)
[2018-04-06 21:55] VITALS: BP 96/68
[2018-04-06] MEDS: PROMETHAZINE HCL 25 MG/ML 1ML IV PRN (22:30)
[2018-04-07 04:42] VITALS: BP 98/65
[2018-04-07] MEDS: metroNIDAZOLE 500MG/100ML 100 ML IV SCH (05:22)
[2018-04-07] MEDS: VANCOMYCIN 1GM/250ML 250 ML IV SCH ×2 (06:16→18:20)
[2018-04-07] MEDS: ACCU-CHEK COMFORT CURVE STRIP VI SCH ×4 (06:24→21:19)
[2018-04-07] MEDS: InsuLIN REG 1unit/0.01ml Soln (100units/ml) SC SCH ×4 (06:28→21:37)
[2018-04-07] MEDS: IPRATROPIUM BROM 0.5 MG/2.5ML INH SOL NEB SCH ×4 (07:08→18:09)
[2018-04-07] MEDS: ALBUTEROL SULF 2.5 MG/0.5ML(0.5%) NEB SOLN NEB SCH ×4 (07:09→18:09)
[2018-04-07 07:25] LABS: Basophils # (auto) 0 uL; Eosinophils # (auto) 0 uL; Hemoglobin 14.2 g/dL (13.5-17.5); Lymphocytes # (auto) 0.6 uL; Lymphocytes % (auto) 2.5 % (10.0-50.0); Mean Corpuscular Hemoglobin 28.9 pg (28.0-32.0); Mean Corpuscular Hgb Conc. 32.2 g/dL (32.0-36.0); Mean Corpuscular Volume 89.5 fL (80.0-100.0); Monocytes # (auto) 1.1 uL; Monocytes % (auto) 4.6 % (0.0-12.0); Neutrophils # (auto) 22.8 uL; Neutrophils % (auto) 92.9 % (37.0-80.0); Nucleated Red Blood Cells % 0.1 %; Platelet Count (auto) 110 10^3/uL (140-450); Red Blood Cells 4.91 10^6/uL (4.5-5.90); Red Cell Distribution Width 14.6 % (11.8-14.3); White Blood Cell 24.6 10^3/uL (4.4-10.8)
[2018-04-07 07:52] VITALS: BP 102/66
[2018-04-07 08:00] LABS: Albumin 2.5 g/dL (3.4-5.0); BUN/Creatinine Ratio 29.3; Bilirubin, Total 0.7 mg/dL (0.2-1.0); Calcium 7.8 mg/dL (8.5-10.1); Potassium 4.6 mmol/L (3.5-5.1); Total Protein 5.9 g/dL (6.4-8.2)
[2018-04-07] MEDS ORDERED: GASTROGRAFIN 120 ML SOL ONE (08:55)
[2018-04-07] MEDS: PIPERACILLIN-TAZOB 3.375GM 100 ML IV SCH ×2 (09:00→12:23)
[2018-04-07] MEDS: CARVEDILOL 3.125 MG TAB PO SCH ×2 (10:00→21:17)
[2018-04-07] MEDS: SODIUM CHLOR 0.9% PF (SALINE LOCK) 10ML VIAL/SYR IV SCH ×2 (11:20→21:17)
[2018-04-07] MEDS: PANTOPRAZOLE 40 MG/10 ML VIAL IV SCH (11:20)
[2018-04-07] MEDS: DOCUSATE SOD 100 MG CAP PO SCH ×2 (11:20→21:17)
[2018-04-07] MEDS: AMIODARONE HCL 200 MG TAB PO SCH (11:20)
[2018-04-07] MEDS: predniSONE 20 MG TAB PO SCH (11:21)
[2018-04-07 12:31] VITALS: BP 128/68
[2018-04-07] MEDS: NALBUPHINE HCL 10 MG/1ml INJECTION IV PRN ×3 (13:35→21:19)
[2018-04-07 17:27] VITALS: BP 103/59
[2018-04-07] MEDS ORDERED: SODIUM CHLORIDE 0.9% 1,000 ML IV SCH (18:15)
[2018-04-07] MEDS: DOPamine 3200MCG/ML 250 ML IV SCH (18:35)
[2018-04-07] MEDS ORDERED: PIPERACILLIN-TAZOB 3.375GM 100 ML IV ONE (21:11)
[2018-04-07] MEDS: METOCLOPRAMIDE HCL 5MG/ml INJ 2ml VIAL IV SCH (21:17)
[2018-04-07 22:00] VITALS: BP 114/77
[2018-04-08] MEDS: ALBUTEROL SULF 2.5 MG/0.5ML(0.5%) NEB SOLN NEB SCH ×4 (01:02→19:17)
[2018-04-08] MEDS: IPRATROPIUM BROM 0.5 MG/2.5ML INH SOL NEB SCH ×4 (01:02→19:17)
[2018-04-08] MEDS: NALBUPHINE HCL 10 MG/1ml INJECTION IV PRN ×3 (01:26→20:26)
[2018-04-08] MEDS: PIPERACILLIN-TAZOB 3.375GM 100 ML IV SCH ×4 (03:27→20:26)
[2018-04-08 05:00] VITALS: BP 108/71
[2018-04-08] MEDS: METOCLOPRAMIDE HCL 5MG/ml INJ 2ml VIAL IV SCH ×3 (06:25→22:52)
[2018-04-08] MEDS: InsuLIN REG 1unit/0.01ml Soln (100units/ml) SC SCH ×4 (06:25→22:53)
[2018-04-08] MEDS: ACCU-CHEK COMFORT CURVE STRIP VI SCH ×4 (06:25→22:53)
[2018-04-08] MEDS: VANCOMYCIN 1GM/250ML 250 ML IV SCH (06:25)
[2018-04-08 06:52] LABS: Basophils # (auto) 0.2 uL; Eosinophils # (auto) 0.1 uL; Eosinophils % (auto) 0.2 % (0.0-7.0); Hematocrit 39.6 % (41.0-53.0); Hemoglobin 13.7 g/dL (13.5-17.5); Lymphocytes % (auto) 4.3 % (10.0-50.0); Mean Corpuscular Hemoglobin 30.3 pg (28.0-32.0); Mean Corpuscular Hgb Conc. 34.6 g/dL (32.0-36.0); Mean Corpuscular Volume 87.4 fL (80.0-100.0); Monocytes # (auto) 1.1 uL; Neutrophils # (auto) 19.9 uL; Neutrophils % (auto) 89.5 % (37.0-80.0); Platelet Count (auto) 109 10^3/uL (140-450); Red Blood Cells 4.53 10^6/uL (4.5-5.90); Red Cell Distribution Width 14.8 % (11.8-14.3); White Blood Cell 22.3 10^3/uL (4.4-10.8)
[2018-04-08 07:17] LABS: Albumin 2.5 g/dL (3.4-5.0); BUN/Creatinine Ratio 31.4; Calcium 7.4 mg/dL (8.5-10.1)
[2018-04-08 07:20] LABS: Bilirubin, Total 0.6 mg/dL (0.2-1.0); Total Protein 5.6 g/dL (6.4-8.2)
[2018-04-08 09:00] VITALS: BP 118/83
[2018-04-08] MEDS: SODIUM CHLOR 0.9% PF (SALINE LOCK) 10ML VIAL/SYR IV SCH ×2 (09:15→22:52)
[2018-04-08] MEDS: PANTOPRAZOLE 40 MG/10 ML VIAL IV SCH (09:15)
[2018-04-08 09:33] VITALS: BP 118/83
[2018-04-08] MEDS: DOCUSATE SOD 100 MG CAP PO SCH ×2 (10:00→22:51)
[2018-04-08] MEDS: AMIODARONE HCL 200 MG TAB PO SCH (10:00)
[2018-04-08] MEDS: CARVEDILOL 3.125 MG TAB PO SCH ×2 (10:00→22:00)
[2018-04-08] MEDS: predniSONE 20 MG TAB PO SCH (10:00)
[2018-04-08 13:00] VITALS: BP 109/73
[2018-04-08] MEDS ORDERED: SODIUM CHLORIDE 0.9% 1,000 ML IV SCH (13:15)
[2018-04-08] MEDS: SODIUM CHLORIDE 0.9% 1,000 ML IV SCH (15:47)
[2018-04-08 17:00] VITALS: BP 104/63
[2018-04-08] MEDS: DOPamine 3200MCG/ML 250 ML IV SCH (19:22)
[2018-04-08 22:00] VITALS: BP 113/77
[2018-04-09] MEDS: PIPERACILLIN-TAZOB 3.375GM 100 ML IV SCH ×4 (02:45→21:50)
[2018-04-09 05:02] LABS: Basophils # (auto) 0 uL; Basophils % (auto) 0.2 % (0.0-2.0); Eosinophils # (auto) 0 uL; Eosinophils % (auto) 0.2 % (0.0-7.0); Hemoglobin 12.4 g/dL (13.5-17.5); Lymphocytes # (auto) 0.6 uL; Lymphocytes % (auto) 3.2 % (10.0-50.0); Mean Corpuscular Hemoglobin 29.8 pg (28.0-32.0); Mean Corpuscular Hgb Conc. 34.4 g/dL (32.0-36.0); Mean Corpuscular Volume 86.7 fL (80.0-100.0); Monocytes % (auto) 5.2 % (0.0-12.0); Neutrophils # (auto) 17.8 uL; Neutrophils % (auto) 91.2 % (37.0-80.0); Nucleated Red Blood Cells % 0.2 %; Platelet Count (auto) 92 10^3/uL (140-450); Red Blood Cells 4.15 10^6/uL (4.5-5.90); Red Cell Distribution Width 14.9 % (11.8-14.3); White Blood Cell 19.5 10^3/uL (4.4-10.8)
[2018-04-09 05:20] LABS: Albumin 2.3 g/dL (3.4-5.0); BUN/Creatinine Ratio 31.1; Calcium 7.2 mg/dL (8.5-10.1); Potassium 3.8 mmol/L (3.5-5.1)
[2018-04-09 05:23] LABS: Bilirubin, Total 0.6 mg/dL (0.2-1.0); Total Protein 5.4 g/dL (6.4-8.2)
[2018-04-09] MEDS: ACCU-CHEK COMFORT CURVE STRIP VI SCH ×4 (06:33→22:20)
[2018-04-09] MEDS: NALBUPHINE HCL 10 MG/1ml INJECTION IV PRN ×2 (06:33→22:00)
[2018-04-09] MEDS: METOCLOPRAMIDE HCL 5MG/ml INJ 2ml VIAL IV SCH ×3 (06:33→22:18)
[2018-04-09] MEDS: ALBUTEROL SULF 2.5 MG/0.5ML(0.5%) NEB SOLN NEB SCH ×4 (06:50→19:17)
[2018-04-09] MEDS: IPRATROPIUM BROM 0.5 MG/2.5ML INH SOL NEB SCH ×4 (06:50→19:16)
[2018-04-09] MEDS: InsuLIN REG 1unit/0.01ml Soln (100units/ml) SC SCH ×4 (06:53→22:44)
[2018-04-09 08:40] VITALS: BP 98/58
[2018-04-09] MEDS: SODIUM CHLOR 0.9% PF (SALINE LOCK) 10ML VIAL/SYR IV SCH ×2 (09:37→22:18)
[2018-04-09] MEDS: PANTOPRAZOLE 40 MG/10 ML VIAL IV SCH (09:37)
[2018-04-09] MEDS: predniSONE 20 MG TAB PO SCH (09:38)
[2018-04-09] MEDS: AMIODARONE HCL 200 MG TAB PO SCH (09:38)
[2018-04-09] MEDS: DOCUSATE SOD 100 MG CAP PO SCH ×2 (09:38→22:19)
[2018-04-09] MEDS: CARVEDILOL 3.125 MG TAB PO SCH ×2 (09:38→22:20)
[2018-04-09 13:05] VITALS: BP 113/73
[2018-04-09] MEDS: SODIUM CHLORIDE 0.9% 1,000 ML IV SCH (15:45)
[2018-04-09 16:58] VITALS: BP 111/64
[2018-04-09] MEDS: VANCOMYCIN 1GM/250ML 250 ML IV SCH (18:31)
[2018-04-09] MEDS: DOPamine 3200MCG/ML 250 ML IV SCH (18:31)
[2018-04-09 22:00] VITALS: BP 101/62
[2018-04-10] MEDS: ACETAMINOPHEN 500 MG TAB PO PRN ×2 (01:11→22:00)
[2018-04-10] MEDS: PIPERACILLIN-TAZOB 3.375GM 100 ML IV SCH ×4 (03:15→20:39)
[2018-04-10 05:12] VITALS: BP 99/57
[2018-04-10] MEDS: IPRATROPIUM BROM 0.5 MG/2.5ML INH SOL NEB SCH ×4 (06:23→18:54)
[2018-04-10] MEDS: ALBUTEROL SULF 2.5 MG/0.5ML(0.5%) NEB SOLN NEB SCH ×4 (06:23→18:54)
[2018-04-10] MEDS: ACCU-CHEK COMFORT CURVE STRIP VI SCH ×4 (06:24→22:12)
[2018-04-10] MEDS: InsuLIN REG 1unit/0.01ml Soln (100units/ml) SC SCH ×4 (06:46→22:09)
[2018-04-10] MEDS: METOCLOPRAMIDE HCL 5MG/ml INJ 2ml VIAL IV SCH ×3 (06:46→22:00)
[2018-04-10] MEDS: NALBUPHINE HCL 10 MG/1ml INJECTION IV PRN (06:47)
[2018-04-10 08:30] VITALS: BP 91/57
[2018-04-10] MEDS: predniSONE 20 MG TAB PO SCH (09:31)
[2018-04-10] MEDS: DOCUSATE SOD 100 MG CAP PO SCH ×2 (09:31→22:00)
[2018-04-10] MEDS: PANTOPRAZOLE 40 MG/10 ML VIAL IV SCH (09:31)
[2018-04-10] MEDS: SODIUM CHLOR 0.9% PF (SALINE LOCK) 10ML VIAL/SYR IV SCH ×2 (09:31→22:01)
[2018-04-10] MEDS: AMIODARONE HCL 200 MG TAB PO SCH (09:39)
[2018-04-10] MEDS: CARVEDILOL 3.125 MG TAB PO SCH ×2 (09:40→22:00)
[2018-04-10 13:02] VITALS: BP 102/66
[2018-04-10 13:28] LABS: Basophils # (auto) 0 uL; Basophils % (auto) 0.1 % (0.0-2.0); Eosinophils # (auto) 0 uL; Eosinophils % (auto) 0.1 % (0.0-7.0); Hematocrit 41.6 % (41.0-53.0); Hemoglobin 13.6 g/dL (13.5-17.5); Lymphocytes # (auto) 0.4 uL; Mean Corpuscular Hemoglobin 29.1 pg (28.0-32.0); Mean Corpuscular Hgb Conc. 32.7 g/dL (32.0-36.0); Monocytes # (auto) 0.5 uL; Monocytes % (auto) 2.8 % (0.0-12.0); Neutrophils # (auto) 18.1 uL; Platelet Count (auto) 119 10^3/uL (140-450); Red Blood Cells 4.68 10^6/uL (4.5-5.90); Red Cell Distribution Width 15.2 % (11.8-14.3); White Blood Cell 19.1 10^3/uL (4.4-10.8)
[2018-04-10 13:47] LABS: Albumin 2.5 g/dL (3.4-5.0); BUN/Creatinine Ratio 27.5; Bilirubin, Total 0.6 mg/dL (0.2-1.0); Calcium 7.9 mg/dL (8.5-10.1); Magnesium 2.6 mg/dL (1.6-2.6); Total Protein 6.4 g/dL (6.4-8.2)
[2018-04-10] MEDS: SODIUM CHLORIDE 0.9% 1,000 ML IV SCH (15:45)
[2018-04-10 16:59] VITALS: BP 98/72
[2018-04-10] MEDS: DOPamine 3200MCG/ML 250 ML IV SCH (17:17)
[2018-04-10] MEDS: VANCOMYCIN 1GM/250ML 250 ML IV SCH (17:18)
[2018-04-10 20:41] VITALS: BP 91/56
[2018-04-11] VITALS (8 sets, daily range): BP systolic 73–102; BP diastolic 38–68
[2018-04-11] MEDS: PIPERACILLIN-TAZOB 3.375GM 100 ML IV SCH ×3 (03:13→15:33)
[2018-04-11] MEDS: PROMETHAZINE HCL 25 MG/ML 1ML IV PRN (05:34)
[2018-04-11] MEDS: METOCLOPRAMIDE HCL 5MG/ml INJ 2ml VIAL IV SCH ×2 (06:00→15:33)
[2018-04-11] MEDS: IPRATROPIUM BROM 0.5 MG/2.5ML INH SOL NEB SCH ×3 (06:22→12:12)
[2018-04-11] MEDS: ALBUTEROL SULF 2.5 MG/0.5ML(0.5%) NEB SOLN NEB SCH ×3 (06:22→12:12)
[2018-04-11] MEDS: ACCU-CHEK COMFORT CURVE STRIP VI SCH ×3 (06:25→17:51)
[2018-04-11] MEDS: InsuLIN REG 1unit/0.01ml Soln (100units/ml) SC SCH ×3 (06:25→17:51)
[2018-04-11 07:28] LABS: Basophils # (auto) 0 uL; Basophils % (auto) 0.1 % (0.0-2.0); Eosinophils # (auto) 0 uL; Eosinophils % (auto) 0.1 % (0.0-7.0); Hemoglobin 12.1 g/dL (13.5-17.5); Lymphocytes # (auto) 0.3 uL; Mean Corpuscular Hgb Conc. 34.5 g/dL (32.0-36.0); Mean Corpuscular Volume 86.9 fL (80.0-100.0); Monocytes # (auto) 0.3 uL; Monocytes % (auto) 2.1 % (0.0-12.0); Neutrophils # (auto) 12.4 uL; Neutrophils % (auto) 95.7 % (37.0-80.0); Platelet Count (auto) 96 10^3/uL (140-450); Red Blood Cells 4.03 10^6/uL (4.5-5.90); Red Cell Distribution Width 14.9 % (11.8-14.3)
[2018-04-11] MEDS ORDERED: SODIUM CHLORIDE 0.9% 150 ML IV ONE (07:30)
[2018-04-11 07:50] LABS: Albumin 2.1 g/dL (3.4-5.0); BUN/Creatinine Ratio 31.4; Bilirubin, Total 0.7 mg/dL (0.2-1.0); Calcium 7.8 mg/dL (8.5-10.1); Magnesium 2.1 mg/dL (1.6-2.6); Potassium 3.6 mmol/L (3.5-5.1); Total Protein 5.3 g/dL (6.4-8.2)
[2018-04-11] MEDS: predniSONE 20 MG TAB PO SCH (09:46)
[2018-04-11] MEDS: PANTOPRAZOLE 40 MG/10 ML VIAL IV SCH (09:46)
[2018-04-11] MEDS: SODIUM CHLOR 0.9% PF (SALINE LOCK) 10ML VIAL/SYR IV SCH (09:46)
[2018-04-11] MEDS: AMIODARONE HCL 200 MG TAB PO SCH (09:47)
[2018-04-11] MEDS: DOCUSATE SOD 100 MG CAP PO SCH (09:47)
[2018-04-11] MEDS: CARVEDILOL 3.125 MG TAB PO SCH (09:47)
[2018-04-11] MEDS: SODIUM CHLORIDE 0.9% 1,000 ML IV SCH (15:45)
[2018-04-11] MEDS: DOPamine 3200MCG/ML 250 ML IV SCH (17:51)
[2018-04-11] MEDS: VANCOMYCIN 1GM/250ML 250 ML IV SCH (17:52)
== END 2018-04-11 19:55 | disposition hospice, home (50) | DRG 871 ==
LOC: EDBD 13:54 → ER 13:59 → TELE 14:00 → TELE-EAST 23:20
PROVIDERS: ADMIT Nurse Practitioner Family; ATTEND Family Medicine
PROC: 4B02XTZ Measurement of Cardiac Defibrillator, External Approach (ICD-10-PCS; 2018-03-24)
PROC: 02HV33Z Insertion of Infusion Device into Superior Vena Cava, Percutaneous Approach (ICD-10-PCS; principal; 2018-03-25)
DX: A41.89 Other specified sepsis (principal); N17.0 Acute kidney failure with tubular necrosis; J18.9 Pneumonia, unspecified organism; J96.20 Acute and chronic respiratory failure, unspecified whether with hypoxia or hypercapnia; I50.43 Acute on chronic combined systolic (congestive) and diastolic (congestive) heart failure; J44.1 Chronic obstructive pulmonary disease with (acute) exacerbation; E87.1 Hypo-osmolality and hyponatremia; I13.0 Hypertensive heart and chronic kidney disease with heart failure and stage 1 through stage 4 chronic kidney disease, or unspecified chronic kidney disease; E87.0 Hyperosmolality and hypernatremia; E87.4 Mixed disorder of acid-base balance; J44.0 Chronic obstructive pulmonary disease with (acute) lower respiratory infection; K56.600 Partial intestinal obstruction, unspecified as to cause; N18.4 Chronic kidney disease, stage 4 (severe); I69.351 Hemiplegia and hemiparesis following cerebral infarction affecting right dominant side; E11.21 Type 2 diabetes mellitus with diabetic nephropathy; E11.22 Type 2 diabetes mellitus with diabetic chronic kidney disease; I25.10 Atherosclerotic heart disease of native coronary artery without angina pectoris; E78.5 Hyperlipidemia, unspecified; I25.5 Ischemic cardiomyopathy; T50.1X5A Adverse effect of loop [high-ceiling] diuretics, initial encounter; M85.80 Other specified disorders of bone density and structure, unspecified site; R29.6 Repeated falls; S39.012A Strain of muscle, fascia and tendon of lower back, initial encounter; W01.0XXA Fall on same level from slipping, tripping and stumbling without subsequent striking against object, initial encounter; Z79.84 Long term (current) use of oral hypoglycemic drugs; Z82.49 Family history of ischemic heart disease and other diseases of the circulatory system; Z79.899 Other long term (current) drug therapy; Z90.49 Acquired absence of other specified parts of digestive tract; I25.2 Old myocardial infarction; Z95.1 Presence of aortocoronary bypass graft; Z95.810 Presence of automatic (implantable) cardiac defibrillator; Y92.89 Other specified places as the place of occurrence of the external cause; Z79.4 Long term (current) use of insulin; Z88.8 Allergy status to other drugs, medicaments and biological substances
CPT/HCPCS: 36415; 36569; 36600; 70450; 71045; 72100; 74018; 74176; 74250; 76775; 80048; 80053; 80202; 81001; 82570; 82607; 82805; 82962; 83735; 83880; 84100; 84300; 84484; 84550; 85007; 85025; 85027; 85610; 85652; 85730; 87040; 87081; 87086; 93005; 93926; 94640; 96361; 96374; 97110; 97116; 97163; 97530; A6257; C9113; J0696; J1265; J1815; J2405; J2543; J3490; J7060